=== PATIENT | female | born 1965 | race Caucasian/White ===

== ENCOUNTER 2025-01-10 18:36 | Inpatient (IN) | payer MEDICAID, OTHER ==
[~2025-01-10] VITALS: Ht 154.9 cm; Wt 81.8 kg
--- NOTE | 2025-01-10 18:59 | ED.PDOC ---
History of Present Illness HPI Comments 59 y.o female presents to the ED for a chief complaint of generalized weakness associated with dizziness, poor appetite and abdominal discomfort that started one month ago. Patient reports symptoms have progressively worsened, states she eats very little to keep her self alimented and is able to keep down the food. Patient mentions abdominal discomfort is not a pain, more so a tightness/fullness sensation with or without eating. Patient denies any nausea, vomiting, diarrhea, back pain, chest pain or SOB. She denies any medical history or allergies. Chief Complaint: General Weakness Time Seen by MD: 18:55 Reviewed Notes: Nurses Notes, Medications, Allergies Information Source: Patient Mode of Arrival: Ambulatory Severity: Moderate Timing: Months (1) Duration: Since onset Past Medical History PAST MEDICAL HISTORY: Denies Surgical History: Denies all surgeries EXHIBIT TECHNICIAN History: No Pertinent EXHIBIT TECHNICIAN History Family History Family History: Reviewed,noncontributory to illness Social History Smoker: Non-Smoker Alcohol: Denies ETOH Use Drugs: Denies Drug Use Lives In: Home Constitutional: reports: weakness; denies: chills, diaphoresis, fatigue, fever, malaise, sweats, others EENTM: denies: blurred vision, double vision, ear bleeding, ear discharge, ear drainage, ear pain, ear ringing, eye pain, eye redness, hearing loss, mouth pain, mouth swelling, nasal discharge, nose bleeding, nose congestion, nose pain, photophobia, tearing, throat pain, throat swelling, voice changes, others Respiratory: denies: cough, hemoptysis, orthopnea, SOB at rest, shortness of breath, SOB with excertion, stridor, wheezing, others Cardiovascular: denies: chest pain, dizzy spells, diaphoresis, Dyspnea on exertion, edema, irregular heart beat, left arm pain, lightheadedness, palpitations, PND, syncope, others Gastrointestinal: reports: abdominal pain; denies: abdomen distended, blood streaked bowels, constipated, diarrhea, dysphagia, difficulty swallowing, hematemesis, melena, nausea, poor appetite, poor fluid intake, rectal bleeding, rectal pain, vomiting, others Genitourinary: denies: abnormal vagina bleeding, burning, dyspareunia, dysuria, flank pain, frequency, hematuria, incontinence, pain, , vagina discharge, urgency, others Neurological: reports: dizziness; denies: fainting, headache, left sided numbness, left sided weakness, numbness, paresthesia, pre-existing deficit, right sided numbness, right sided weakness, seizure, speech problems, tingling, tremors, weakness, others Musculoskeletal: denies: back pain, gout, joint pain, joint swelling, muscle pain, muscle stiffness, neck pain, others Integumetry: denies: bruises, change in color, change in hair/nails, dryness, laceration, lesions, lumps, rash, wounds, others Allergic/Immunocompromised: denies: Difficulty Healing, Frequent Infections, Hives, Itching, others Hematologic/Lymphatic: denies: anemia, blood clots, easy bleeding, easy bruising, swollen glands, others Endocrine: denies: excessive hunger, excessive sweating, excessive thirst, excessive urination, flushing, intolerance to cold, intolerance to heat, unexplained weight gain, unexplained weight loss, others Psychiatric: denies: anxiety, bipolar disorder, depression, hopeless, panic disorder, schizophrenia, sleepless, suicidal, others All Other Systems: Reviewed and Negative Physical Exam General Appearance: Moderate Distress HEENT: Pale Conjuntivae (L), Pale Conjuntivae (R), Pharynx Normal, TMs Normal Neck: Full Range of Motion, Non-Tender, Normal, Normal Inspection Respiratory: Chest Non-Tender, Lungs Clear, No Accessory Muscle Use, No Respiratory Distress, Normal Breath Sounds Cardiovascular: No Edema, No JVD, No Murmur, No Gallop, Normal Peripheral Pulses, Regular Rate/Rhythm Breast Exam: Deferred Gastrointestinal: Distended, Hepatomegaly, No Pulsatile Mass, Soft Genitalia: Deferred Pelvic: Deferred Rectal: Deferred Extremities: No calf tenderness, Normal capillary refill, Pedal edema Musculoskeletal : Apperance: Normal Neurologic: Alert, global climate change researcher II-XII nml as Tested, No Motor Deficits, Normal Affect, Normal Mood, No Sensory Deficits Cerebellar Function: Normal Reflexes: Normal Skin: Dry, Normal Color, Warm Lymphatic: No Adenopathy Was a procedure done? Was a procedure done?: No Differential Dx Considerations may include: Viral Syndrome, Vertigo, Anxiety, Thyroid disease, dehydration X-Ray, Labs, Meds, VS Vital Signs Date Time Temp Pulse Resp B/P (MAP) Pulse Ox O2 Delivery O2 Flow Rate FiO2 01/10/25 18:51 98.0 95 20 119/79 (92) 98 98.0 Lab Test 01/10/25 19:09 Range/Units White Blood Count 7.0 4.4-10.8 10^3/uL Red Blood Count 4.07 4.0-5.20 10^6/uL Hemoglobin 12.1 L 12.2-16.2 g/dL Hematocrit 36.0 36.0-46.0 % Mean Corpuscular Volume 88.4 80.0-100.0 fL Mean Corpuscular Hemoglobin 29.6 28.0-32.0 pg Mean Corpuscular Hemoglobin Concent 33.5 32.0-36.0 g/dL Red Cell Distribution Width 21.8 H 11.8-14.3 % Platelet Count 197 140-450 10^3/uL Mean Platelet Volume 7.4 6.9-10.8 fL Neutrophils (%) (Auto) 73.5 37.0-80.0 % Lymphocytes (%) (Auto) 16.0 10.0-50.0 % Monocytes (%) (Auto) 8.0 0.0-12.0 % Eosinophils (%) (Auto) 1.4 0.0-7.0 % Basophils (%) (Auto) 1.1 0.0-2.0 % Neutrophils # (Auto) 5.2 1.6-8.6 10 ^3/uL Lymphocytes # (Auto) 1.1 0.4-5.4 10 ^3/uL Monocytes # (Auto) 0.6 0-1.3 10 ^3/uL Eosinophils # (Auto) 0.1 0-0.8 10 ^3/uL Basophils # (Auto) 0.1 0-0.2 10 ^3/uL Nucleated Red Blood Cells 0.1 % Sodium Level 135 L 136-145 mmol/L Potassium Level 4.4 3.5-5.1 mmol/L Chloride Level 104 98-107 mmol/L Carbon Dioxide Level 22 20-31 mmol/L Anion Gap 9 5-15 Blood Urea Nitrogen 11 9-23 mg/dL Creatinine 0.95 0.550-1.02 mg/dL Glomerular Filtration Rate Calc 69 >90 mL/min BUN/Creatinine Ratio 11.6 10.0-20.0 Serum Glucose 101 74-106 mg/dL Calcium Level 9.2 8.7-10.4 mg/dL Total Bilirubin 1.6 H 0.2-1.0 mg/dL Aspartate Amino Transferase (AST) 171 H <34 U/L Alanine Aminotransferase (ALT) 47 H 7-40 U/L Alkaline Phosphatase 334 H 46-116 U/L Total Protein 9.3 H 5.7-8.2 g/dL Albumin 3.0 L 3.2-4.8 g/dL CAT scan of the abdomen and pelvis shows: IMPRESSION: 1. Moderate ascites around the liver and scattered throughout the abdomen and pelvis. 2. No findings of bowel obstruction. 3. Mild distention of the gallbladder no calcified gallstones seen. 4. No nephrolithiasis or hydronephrosis. Liver enzymes are all elevated with a total bilirubin of 1.6 At this time the patient's CBC is within normal limits The rest of the chemistry panel is within normal limits The patient is being admitted to the hospitalist Images Reviewed?: Images reviewed and evaluated by me Time of 1ST Reevaluation: 18:58 Reevaluation 1ST: Unchanged Patient Education/Counseling: Diagnosis, Treatment, Prognosis Family Education/Counseling: No Family Present Departure 1 Departure Time of Disposition: 20:33 Impression: Primary Impression: Intractable abdominal pain Additional Impressions: Liver cirrhosis Qualified Codes: K74.60 - Unspecified cirrhosis of liver; R18.8 - Other ascites Hyperbilirubinemia Disposition: ADMITTED INPATIENT Admit to: Med Surg Condition: Fair Critical Care Note Critical Care Time?: No Stability Stability form required: Yes Unstable for transfer: ED Physician Assesment (Clinical assesment) I personally scribed for NORRIS ROWLAND MD ([email or web address]) on 01/10/25 at 18:58. Electronically submitted by Lana Correa ([facility]). NORRIS ROWLAND MD Jan 10, 2025 18:58
[2025-01-10 19:19] LABS: Basophils # (auto) 0.1 10 ^3/uL (0-0.2); Basophils % (auto) 1.1 % (0.0-2.0); Eosinophils # (auto) 0.1 10 ^3/uL (0-0.8); Eosinophils % (auto) 1.4 % (0.0-7.0); Hemoglobin 12.1 g/dL (12.2-16.2); Lymphocytes # (auto) 1.1 10 ^3/uL (0.4-5.4); Mean Corpuscular Hemoglobin 29.6 pg (28.0-32.0); Mean Corpuscular Hgb Conc. 33.5 g/dL (32.0-36.0); Mean Corpuscular Volume 88.4 fL (80.0-100.0); Monocytes # (auto) 0.6 10 ^3/uL (0-1.3); Neutrophils # (auto) 5.2 10 ^3/uL (1.6-8.6); Neutrophils % (auto) 73.5 % (37.0-80.0); Nucleated Red Blood Cells % 0.1 %; Platelet Count (auto) 197 10^3/uL (140-450); Red Blood Cells 4.07 10^6/uL (4.0-5.20)
[2025-01-10 19:33] LABS: Red Cell Distribution Width 21.8 % (11.8-14.3)
[2025-01-10 19:34] LABS: Anion Gap 9 (5-15); BUN/Creatinine Ratio 11.6 (10.0-20.0); Blood Urea Nitrogen 11 mg/dL (9-23); Calcium 9.2 mg/dL (8.7-10.4); Carbon Dioxide 22 mmol/L (20-31); Chloride 104 mmol/L (98-107); Glucose 101 mg/dL (74-106); Potassium 4.4 mmol/L (3.5-5.1)
[2025-01-10 19:39] LABS: Alanine Aminotransferase 47 U/L (7-40); Alkaline Phosphatase 334 U/L (46-116); Aspartate Aminotransferase 171 U/L (<34); Bilirubin, Total 1.6 mg/dL (0.2-1.0); Sodium 135 mmol/L (136-145); Total Protein 9.3 g/dL (5.7-8.2)
--- NOTE | 2025-01-10 20:24 | DVH ---
Exam: CT CT AB PEL WO CON-NO ORAL OR IV History: pain Comparison Study: None TECHNIQUE: Multidetector CT of the abdomen was performed from lung bases to pubic symphysis. Imaging was performed without IV contrast. Axial, coronal and sagittal multiplanar reformats were obtained fr om the axial data set by the technologist. Radiation Dose Information: CT Dose: CTDI volume is 10.78 mGy. Dose-length product is 581.58 mGy*cm FINDINGS: Evaluation of solid organs is limited due to lack of intravenous contrast use. Findings: Lung Bases: No acute or significant lung base finding. Normal heart size. No pleural or pericardial effusion. Liver: The liver is normal in size. No focal lesions. Hepatomegaly. Hepatomegaly measuring 24 cm. Gallbladder and Biliary Tree: Unremarkable Spleen: Spleen measures 13.3 cm. Pancreas: The pancreas is grossly normal in appearance. Adrenal Glands: Unremarkable Kidneys: Kidneys are grossly normal without calculi or hydronephrosis. Bladder: Grossly unremarkable for degree of distention. Bowel: The stomach is grossly normal in appearance. Small bowel and colon are normal in caliber and d istribution. The appendix is not visualized; however, no secondary findings of acute appendicitis id entified. Ascites: Scattered ascites is noted around the liver and scattered throughout the abdomen and pelvis. Lymphadenopathy: No mesenteric, retroperitoneal or periportal lymphadenopathy. Abdominal Wall and Mesentery: Unremarkable. Vasculature: The visualized abdominal aorta is normal in size and caliber. Evaluation of abdominal a nd pelvic vessels is limited due to lack of intravenous contrast. Pelvic Organs: Unremarkable Musculoskeletal: No aggressive focal bony lesions, acute fractures or dislocation. Soft tissues: Unremarkable IMPRESSION: 1. Moderate ascites around the liver and scattered throughout the abdomen and pelvis. 2. No findings of bowel obstruction. 3. Mild distention of the gallbladder no calcified gallstones seen. 4. No nephrolithiasis or hydronephrosis. Radiation optimization: All CT scans at this facility use at least one of these dose optimization patrick hniques: automated exposure control mA and/or kV adjustment per patient size (includes targeted exam s where dose is matched to clinical indication) or iterative reconstruction.
[2025-01-10] MEDS ORDERED: NITROGLYCERIN 0.4 MG SL TAB SL PRN (23:45)
[2025-01-10] MEDS ORDERED: MORPHINE SULFATE INJ 2 MG/ml SYRG IV PRN ×2 (23:45)
[2025-01-11 00:53] LABS: Basophils # (auto) 0.1 10 ^3/uL (0-0.2); Basophils % (auto) 1.3 % (0.0-2.0); Eosinophils # (auto) 0.1 10 ^3/uL (0-0.8); Eosinophils % (auto) 1.1 % (0.0-7.0); Hematocrit 34.2 % (36.0-46.0); Hemoglobin 11.5 g/dL (12.2-16.2); Lymphocytes # (auto) 1.2 10 ^3/uL (0.4-5.4); Lymphocytes % (auto) 17.3 % (10.0-50.0); Mean Corpuscular Hemoglobin 29.7 pg (28.0-32.0); Mean Corpuscular Hgb Conc. 33.8 g/dL (32.0-36.0); Mean Corpuscular Volume 88.1 fL (80.0-100.0); Monocytes # (auto) 0.7 10 ^3/uL (0-1.3); Monocytes % (auto) 9.4 % (0.0-12.0); Neutrophils % (auto) 70.9 % (37.0-80.0); Nucleated Red Blood Cells % 0.3 %; Platelet Count (auto) 188 10^3/uL (140-450); Red Blood Cells 3.88 10^6/uL (4.0-5.20); Red Cell Distribution Width 20.9 % (11.8-14.3)
[2025-01-11 01:09] LABS: % Iron Saturation 24.5 % (15-50)
[2025-01-11 01:10] LABS: Anion Gap 10 (5-15); BUN/Creatinine Ratio 12.6 (10.0-20.0); Blood Urea Nitrogen 11 mg/dL (9-23); Carbon Dioxide 22 mmol/L (20-31); Chloride 102 mmol/L (98-107); Lipase 48 U/L (12-53)
[2025-01-11 01:11] LABS: Alanine Aminotransferase 44 U/L (7-40); Albumin 2.9 g/dL (3.2-4.8); Alkaline Phosphatase 328 U/L (46-116); Aspartate Aminotransferase 161 U/L (<34); Bilirubin, Total 1.6 mg/dL (0.2-1.0); Calcium 8.4 mg/dL (8.7-10.4); Glucose 109 mg/dL (74-106); Sodium 134 mmol/L (136-145); Total Protein 8.9 g/dL (5.7-8.2)
[2025-01-11 01:12] LABS: INR 1.32 (0.9-1.15); Prothrombin Time 13.6 sec (9.3-11.8)
--- NOTE | 2025-01-11 01:29 | DVHHPRES ---
History of Present Illness Resident Creating Document: PAWAN BOND RESIDENT History of Present Illness Ms. Rao Gilbert, 59-year-old female without any known previous medical history except chronic anemia presents to the emergency department from home with a one-month history of progressively worsening generalized weakness, dizziness, poor appetite, and a sensation of abdominal tightness or fullness, which she describes as discomfort rather than pain. She reports eating very little but is able to tolerate and retain food. The abdominal sensation occurs with or without eating. She denies associated symptoms such as nausea, vomiting, diarrhea, back pain, chest pain, or shortness of breath. She has no known medical history or allergies. She arrived ambulatory, and the severity of her symptoms is described as moderate. Limited history, poor historian, no previous hospitalization noted. Heme/Onc: Anemia NOS Past Medical History not known Past Surgical History: None Family History: None, Other (noncontributary ) Smoke: No ALCOHOL: none Drugs: None Lives: with Family (lives at home. ) Domestic Violence: Neg Review of Systems Constitutional: Yes: Weakness; No: Fever, Chills, Sweats, Malaise, Other Eyes: No: Pain, Vision change, Conjunctivae inflammation, Eyelid inflammation, Other, Redness ENT: No: Ear pain, Ear discharge, Nose pain, Nose discharge, Nose congestion, Mouth pain, Mouth swelling, Throat pain, Throat swelling, Other Respiratory: No: Cough, Dry, Shortness of breath, SOB with excertion, Wheezing, Hemoptysis, Pleuritic Pain, Sputum, Wheezing, Other Cardiovascular: No: Chest Pain, Palpitations, Orthopnea, Paroxysmal Noc. Dyspnea, Edema, Lt Headedness, Other Gastrointestinal: Nausea, Abdominal Pain; No: Vomiting, Diarrhea, Constipation, Melena, Hematochezia, Other Genitourinary: No Dysuria, No Frequency, No Incontinence, No Hematuria, No Retention, No Other Musculoskeletal: No: other, neck pain, shoulder pain, arm pain, back pain, hand pain, leg pain, foot pain Skin: No: Rash, Lesions, Jaundice, Bruising, Other Neurological: Weakness; No: Numbness, Incoordination, Change in speech, Confusion, Seizures, Other Allergies: Coded Allergies: Penicillins (Verified Allergy, Unknown, 01/11/25) Medications Current Medications Medications Dose Ordered Sig/Ivis Route Start Time Stop Time Status Last Admin Dose Admin Sodium Chloride 1,000 ml @ 60 mls/hr [id number] IV 01/10/25 23:45 Morphine Sulfate 2 mg Q4HPRN PRN IV 01/10/25 23:45 Nitroglycerin 0.4 mg Q5MINP PRN SL 01/10/25 23:45 Morphine Sulfate 2 mg Q30M PRN IV 01/10/25 23:45 Ceftriaxone Sodium 50 ml @ 100 mls/hr DAILY@09 IV 01/11/25 09:00 Metronidazole 100 ml @ 100 mls/hr Q8HR IV 01/11/25 06:00 Pantoprazole Sodium 40 mg DAILY IV 01/11/25 10:00 Exam Vital Signs Vital Signs Date Time Temp Pulse Resp B/P (MAP) Pulse Ox O2 Delivery O2 Flow Rate FiO2 01/10/25 18:51 98.0 95 20 119/79 (92) 98 98.0 General Appearance: Alert, Oriented X3, Cooperative, No acute distress HEENT: Atraumatic, PERRLA, EOMI, Other (dry mucous membrane , pallor ) Respiratory: Clear to auscultation, Normal air movement, Other (in RA ) Cardiovascular: Regular rate, Normal S1, Normal S2, No murmurs Abdominal: Normal bowel sounds, Soft, No tenderness, No masses, Other (mild distention, full flanks. no tenderness. ) Extremities: No clubbing, No cyanosis, No edema, Normal pulses, No tenderness/swelling Skin: No rashes, No breakdown, No significant lesion Neuro: Normal gait, Normal speech, Strength at 5/5 X4 ext, Normal tone, Sensation intact, Cranial nerves 3-12 NL, Reflexes 2+, Other (No focal neurological deficits noted) Psych/Mental Status: Mental status NL, Mood NL Labs/Xrays Labs Test 01/11/25 00:29 Range/Units White Blood Count 7.0 4.4-10.8 10^3/uL Red Blood Count 3.88 L 4.0-5.20 10^6/uL Hemoglobin 11.5 L 12.2-16.2 g/dL Hematocrit 34.2 L 36.0-46.0 % Mean Corpuscular Volume 88.1 80.0-100.0 fL Mean Corpuscular Hemoglobin 29.7 28.0-32.0 pg Mean Corpuscular Hemoglobin Concent 33.8 32.0-36.0 g/dL Red Cell Distribution Width 20.9 H 11.8-14.3 % Platelet Count 188 140-450 10^3/uL Mean Platelet Volume 7.5 6.9-10.8 fL Neutrophils (%) (Auto) 70.9 37.0-80.0 % Lymphocytes (%) (Auto) 17.3 10.0-50.0 % Monocytes (%) (Auto) 9.4 0.0-12.0 % Eosinophils (%) (Auto) 1.1 0.0-7.0 % Basophils (%) (Auto) 1.3 0.0-2.0 % Neutrophils # (Auto) 5.0 1.6-8.6 10 ^3/uL Lymphocytes # (Auto) 1.2 0.4-5.4 10 ^3/uL Monocytes # (Auto) 0.7 0-1.3 10 ^3/uL Eosinophils # (Auto) 0.1 0-0.8 10 ^3/uL Basophils # (Auto) 0.1 0-0.2 10 ^3/uL Nucleated Red Blood Cells 0.3 % Sodium Level 134 L 136-145 mmol/L Potassium Level 4.0 3.5-5.1 mmol/L Chloride Level 102 98-107 mmol/L Carbon Dioxide Level 22 20-31 mmol/L Anion Gap 10 5-15 Blood Urea Nitrogen 11 9-23 mg/dL Creatinine 0.87 0.550-1.02 mg/dL Glomerular Filtration Rate Calc 76 >90 mL/min BUN/Creatinine Ratio 12.6 10.0-20.0 Serum Glucose 109 H 74-106 mg/dL Lactic Acid Level 1.9 0.4-2.0 mmol/L Calcium Level 8.4 L 8.7-10.4 mg/dL Iron Level 63 50-170 ug/dL Total Iron Binding Capacity 257 250-425 ug/dL Percent Iron Saturation 24.5 15-50 % Ferritin 321.0 H 10-291 ng/mL Total Bilirubin 1.6 H 0.2-1.0 mg/dL Aspartate Amino Transferase (AST) 161 H <34 U/L Alanine Aminotransferase (ALT) 44 H 7-40 U/L Alkaline Phosphatase 328 H 46-116 U/L Ammonia 22 11-32 umol/L Total Protein 8.9 H 5.7-8.2 g/dL Albumin 2.9 L 3.2-4.8 g/dL Lipase 48 12-53 U/L Assessment/Plan Assessment/Plan # Progressive dysphagia, poor appetite, unintentional weight loss, persistent and inability to tolerate food: We will do GI consult for a possible EGD and fur ther workup. Patient has not previously follow up with GI. The patient reports progressively worsening symptoms over the past month, including poor appetite with minimal food intake that she can tolerate, and a non-painful abdominal tightness or fullness occurring with or without eating, while denying nausea, vomiting, diarrhea, back pain, chest pain, shortness of breath, medical history, or allergies. # Generalized weakness associated with dizziness: check for orthostatic vitals, fall precautions, check for secondary causes and PT eval pending. # Dizziness: Intermittent dizziness without loss of consciousness, likely due to dehydration, other secondary causes, orthostatic hypotension, it to rule out, orthostatic vitals, IV fluid, review symptoms. # Chronic abdominal pain workup in progress, CT abdomen unremarkable, possible paracentesis and further testing, presumptive diagnosis of SBP, lipase, ammonia, UDS to check. # spontaneous bacterial peritonitis: Likely with g negatives and anaerobes We will empirically cover, blood culture to follow # normocytic anemia, acute versus chronic: hemoglobin 12.1, RDW 21.8, check for ferritin +iron panel , no known active blood loss.avoid NSAIDs, aspirin, anticoagulation, Lovenox, high-risk of bleeding, SCDs only with GI prophylaxis. Transfusion threshold of hemoglobin 7. # Hyperbilirubinemia: Likely due to underlying liver disease/ hepatobiliary pathology, workup in progress, check for differentials # likely hepatitis, check the comprehensive hepatitis panel, UDS, alcohol, workup in progress # History of chronic anemia: Denies any active bleeding, further workup needed for GI malignancy/ GI occult blood loss, GI consulted. For close follow up. # history of liver cirrhosis check INR PT and ammonia to check # likely we will need paracentesis for diagnostic/ therapeutic purpose. # hypoalbuminemia likely due to above # Transaminitis: trend CMP, Suspicious related to 2 to 1 pattern, Hepatomegaly measuring 24 cm. RUQ liver ultrasound , hepatitis panel pending. # Poor medical adherence, does not have a close follow up, outpatient patient needs further close follow up and preventative workup. PCP: NA, will consider [facility] for PCP follow up at discharge. Specialist Relevant To Admission: GI. Consulted for further workup for dysphagia. Case discussed with Dr. Ricci. Code Status: Full Code. Discussion needed total 37 minutes bedside with goals of care discussion and plan of care. Patient is agreeable to be admitted in hospital in the [facility] surge. Plan discussed with: Patient My Orders Orders - PAWAN BOND RESIDENT Procedure Category Date Status Time Admit ADMIT 01/10/25 Transmitted 23:43 Allergies PATRICK 01/10/25 In Process 23:43 Code Status CODE 01/10/25 Transmitted 23:43 Sodium Chloride 0.9% PHA 01/10/25 In Process 23:45 Npo (Nothing By DIET 01/11/25 Transmitted Mouth) Diet Breakfast Pt Request For Service PT 01/10/25 Logged 23:43 * Swallow Request ST 01/10/25 Transmitted 23:43 Echo 2d Mode Cardiac US 01/10/25 Logged DOP 23:43 Condition: Serious PATRICK 01/10/25 In Process 23:43 Morphine Sulfate PHA 01/10/25 In Process Injection 23:45 Nitroglycerin PHA 01/10/25 In Process Sublingual (Ntrostat 23:45 Morphine Sulfate PHA 01/10/25 In Process Injection 23:45 Oxygen By Nasal RT 01/10/25 Transmitted Cannula 23:43 Stat Ekg For Chest PATRICK 01/10/25 In Process Pain 23:43 Notify Md Of Changes PATRICK 01/10/25 In Process From Base 23:43 Second Language Tutor For PATRICK 01/10/25 In Process 24 Hours 23:43 Emergency Dysrhythmia PATRICK 01/10/25 In Process Protocol 23:43 Rhythm Strips Once PATRICK 01/10/25 In Process Every Shift 23:43 Lipase LAB 01/11/25 In Process 00:02 Drug Screen LAB 01/11/25 Logged 00:02 Blood Alcohol LAB 01/11/25 In Process 00:02 Blood Culture FRANCISCA 01/11/25 In Process 00:02 Ceftriaxone 1gm/50ml PHA 01/11/25 In Process D5w (Rocephin) 09:00 Metronidazole PHA 01/11/25 In Process 500mg/100ml (Flagyl 06:00 Comprehensive LAB 01/11/25 In Process Hepatitis Panel 00:02 LIVER US 01/11/25 Taken 00:02 Prothrombin Time W/ LAB 01/11/25 In Process INR 00:02 Thyroid Stimulating LAB 01/11/25 In Process Hormone 00:07 Comprehensive LAB 01/11/25 In Process Metabolic Panel 00:02 Pantoprazole PHA 01/11/25 In Process (Protonix) 01:15 Pantoprazole PHA 01/11/25 In Process (Protonix) 10:00 Stool Occult Blood LAB 01/11/25 Logged 01:07 Date of Service: Jan 11, 2025 Billing Provider: STEFANIE RICCI MD Common Visit Codes: 90197-YVPBGNP INP/OBS CARE (HIGH) Secondary Visit Codes: 26547-LSFUFATF CARE PLAN 30 MINUTES PAWAN BOND RESIDENT Jan 11, 2025 01:29
--- NOTE | 2025-01-11 01:57 | DVH ---
INDICATION: Rule out Hepatobiliary pathology TECHNIQUE: Multiple real-time sonographic images were obtained of the right upper quadrant. COMPARISON: None FINDINGS: The liver demonstrates diffusely heterogeneous echotexture and is lobulated in its morpholo gy, suggestive of cirrhotic change. Ill-defined heterogeneous left hepatic lobe masslike structure me asures 11.9 x 10.6 x 9.0 cm. The liver measures 20.4 cm. Normal hepatopetal portal flow identified. No evidence of pleural effusion. Moderate abdominal ascites. There is no intrahepatic or extrahepatic ductal dilatation. The common duct is dilated, measuring 1.7 cm. Mobile sludge noted within the gallbladder. The gallbladder wall is mildly thickened, measuring 0.4 c m. Negative sonographic Fagan's sign. The right kidney measures 9.3 cm. The right kidney is normal in contour, size, and shape. The echogen icity is normal. There is no hydronephrosis. The pancreas is not well visualized due to overlying bowel gas. IMPRESSION: 1. Hepatomegaly and cirrhotic hepatic morphology. 2. Ill-defined left hepatic lobe masslike structure poorly characterized on the current exam. 3. Gallbladder sludge and borderline wall thickening. Negative sonographic fagan's sign. 4. Dilated common bile duct.
[2025-01-11] MEDS: PANTOPRAZOLE 40 MG/10 ML VIAL INJ IV ONE (02:06)
[2025-01-11] MEDS: SODIUM CHLORIDE 0.9% 1,000 ML IV SCH (02:12)
[2025-01-11 02:39] VITALS: BP 97/64; PULSE 85; RESP 15; O2SAT 95
[2025-01-11 03:45] LABS: Blood Alcohol < 3.0 mg/dL (<10)
[2025-01-11 04:45] VITALS: BP 98/59; PULSE 85; RESP 15; TEMP 98.3; O2SAT 97
[2025-01-11] MEDS: metroNIDAZOLE 500MG/100ML 100 ML IV SCH (05:08)
[2025-01-11] MEDS ORDERED: ENOXAPARIN SOD 40 MG/0.4 ML SYRINGE SC SCH (10:00)
[2025-01-11] MEDS: cefTRIAXone 1GM/50ML D5W 50 ML IV SCH (10:37)
[2025-01-11] MEDS: PANTOPRAZOLE 40 MG/10 ML VIAL INJ IV SCH (10:38)
[2025-01-11 10:46] VITALS: BP 108/67; PULSE 80; RESP 18; TEMP 98.6; O2SAT 96
[2025-01-11 10:50] LABS: Free T4 (Free Thyroxine) 1.2 ng/dL (0.89-1.76)
[2025-01-11 10:51] LABS: Free T3 2.56 pg/mL (2.3-4.2)
[2025-01-11 10:52] LABS: Hepatitis B Core Total AB Negative (Negative)
[2025-01-11 11:20] LABS: Hepatitis A Total Antibody Positive (Negative); Hepatitis B Surface Antibody Negative (Negative); Hepatitis B Surface Antigen Negative (Negative); Hepatitis C Antibody Negative (Negative)
[2025-01-11] MEDS ORDERED: MORPHINE SULFATE INJ 2 MG/ml SYRG IV PRN (11:45)
[2025-01-11] MEDS ORDERED: IRON SUCROSE COMPLEX 110 ML IV SCH (12:00)
--- NOTE | 2025-01-11 13:44 | DVHINCON2 ---
GI Consult Consult Note GI consult note Date of Consultation: 01/11/2025 Chief Complaint: Weight loss, abdominal pain, dysphagia and ammonia Referring Physician: Dr. Estrada H&P: 59-year-old female with history of chronic anemia, presents to ER with complains of progressive worsening generalized weakness for this one month, having poor appetite, with weight loss of 30 lb in the last three months. Patient complains of occasional difficulty swallowing. Patient also is complaining of abdominal fullness feels bloated. No nausea or vomiting. No history of hematemesis No melena or red blood in stool. Patient denies alcohol use in the past. Denies history of hepatitis No EGD or colonoscopy in past Past Medical History: Anemia Past Surgical History: Denies Social History: NO smoking, drinking ETOH and use of illegal drugs. Family History: Noncontributory Review of Systems: Constitutional: no fever, chill, weight loss HEENT: no eye pain, no hearing loss, no oral lesion, no scleral icterus Heart: no chest pain, no chest pressure Lung: no cough, no dyspnea with exertion Abdomen: see HPI Physical exam: General: NAD, AAOX3 Chest: lung camacho clear to auscultation Heart: RRR, no murmur Abdomen: Wqul-ye-ssnhbbat-distended, no tenderness to palpation, +BS Labs: Labs Test 01/11/25 00:29 Range/Units White Blood Count 7.0 4.4-10.8 10^3/uL Red Blood Count 3.88 L 4.0-5.20 10^6/uL Hemoglobin 11.5 L 12.2-16.2 g/dL Hematocrit 34.2 L 36.0-46.0 % Mean Corpuscular Volume 88.1 80.0-100.0 fL Mean Corpuscular Hemoglobin 29.7 28.0-32.0 pg Mean Corpuscular Hemoglobin Concent 33.8 32.0-36.0 g/dL Red Cell Distribution Width 20.9 H 11.8-14.3 % Platelet Count 188 140-450 10^3/uL Mean Platelet Volume 7.5 6.9-10.8 fL Neutrophils (%) (Auto) 70.9 37.0-80.0 % Lymphocytes (%) (Auto) 17.3 10.0-50.0 % Monocytes (%) (Auto) 9.4 0.0-12.0 % Eosinophils (%) (Auto) 1.1 0.0-7.0 % Basophils (%) (Auto) 1.3 0.0-2.0 % Neutrophils # (Auto) 5.0 1.6-8.6 10 ^3/uL Lymphocytes # (Auto) 1.2 0.4-5.4 10 ^3/uL Monocytes # (Auto) 0.7 0-1.3 10 ^3/uL Eosinophils # (Auto) 0.1 0-0.8 10 ^3/uL Basophils # (Auto) 0.1 0-0.2 10 ^3/uL Nucleated Red Blood Cells 0.3 % Prothrombin Time 13.6 H 9.3-11.8 sec Prothrombin Time INR 1.32 H 0.9-1.15 Sodium Level 134 L 136-145 mmol/L Potassium Level 4.0 3.5-5.1 mmol/L Chloride Level 102 98-107 mmol/L Carbon Dioxide Level 22 20-31 mmol/L Anion Gap 10 5-15 Blood Urea Nitrogen 11 9-23 mg/dL Creatinine 0.87 0.550-1.02 mg/dL Glomerular Filtration Rate Calc 76 >90 mL/min BUN/Creatinine Ratio 12.6 10.0-20.0 Serum Glucose 109 H 74-106 mg/dL Lactic Acid Level 1.9 0.4-2.0 mmol/L Calcium Level 8.4 L 8.7-10.4 mg/dL Iron Level 63 50-170 ug/dL Total Iron Binding Capacity 257 250-425 ug/dL Percent Iron Saturation 24.5 15-50 % Ferritin 321.0 H 10-291 ng/mL Total Bilirubin 1.6 H 0.2-1.0 mg/dL Aspartate Amino Transferase (AST) 161 H <34 U/L Alanine Aminotransferase (ALT) 44 H 7-40 U/L Alkaline Phosphatase 328 H 46-116 U/L Ammonia 22 11-32 umol/L Total Protein 8.9 H 5.7-8.2 g/dL Albumin 2.9 L 3.2-4.8 g/dL Lipase 48 12-53 U/L Thyroid Stimulating Hormone (TSH) 6.27 H 0.55-4.78 uIU/mL Free Thyroxine (T4) Calculated 1.20 0.89-1.76 ng/dL Free Triiodothyronine (T3) pg/mL 2.56 2.3-4.2 pg/mL Plasma/Serum Blood Alcohol < 3.0 <10 mg/dL Hepatitis A Antibody Total Positive H Negative Hepatitis B Surface Antigen Negative Negative Hepatitis B Surface Antibody Negative Negative Hepatitis B Core Total Antibody Negative Negative Hepatitis C Antibody Negative Negative Imaging: CT Abdomen pelvis IMPRESSION: 1. Moderate ascites around the liver and scattered throughout the abdomen and pelvis. 2. No findings of bowel obstruction. 3. Mild distention of the gallbladder no calcified gallstones seen. 4. No nephrolithiasis or hydronephrosis. Abdominal ultrasound IMPRESSION: 1. Hepatomegaly and cirrhotic hepatic morphology. 2. Ill-defined left hepatic lobe masslike structure poorly characterized on the current exam. 3. Gallbladder sludge and borderline wall thickening. Negative sonographic river's sign. 4. Dilated common bile duct. Assessment: Hepatomegaly Ascites Dysphagia Dilated common bile duct Abnormal abdominal imaging Plan: Discussed with Dr. Stern Mrcp results pending Full liquid diet today NPO after midnight, patient requires any GI procedures. After reviewing MRCP results Discussed plan with patient and RN Date of Service: Jan 11, 2025 Billing Provider: GISELLE CORNEJO Common Visit Codes: CONSULT ONLY Consultation Codes: [id number] CONSULT <60MIN GISELLE CORNEJO Jan 11, 2025 13:44
--- NOTE | 2025-01-11 14:08 | DVH ---
PROCEDURE: MRI MRCP MRI Indication: Dilated CBD COMPARISON: 01/10/2025 01/11/2025 TECHNIQUE: Multiplanar multisequence images of the abdomen are obtianed per MRCP protocol. FINDINGS: Examination degraded by motion. Adrenal glands unremarkable. The spleen is enlarged measuring 17 cm AP. Gallbladder partially distended. No T2 hyperintense lesions in the pancreas. The liver capsule is nodular morphology. There is a large T2 bright mass within the right hepatic lo be/ dome measuring 12 x 13 cm.T2 bright lesion within the posterior right hepatic lobe measuring 8.0 x 6.0 cm. There is another mass /conglomerate lymphadenopathy within the posterior right hepatic lobe / caudate lobe which compresses upon the common bile duct measuring at least 7.0 x 6.1 cm and extends into the region of the anibal hepatis, with individual masses measuring 4.9 cm, 3.6 cm. These lesions / masses demonstrate diffusion restriction signal. There is likely thrombus within the left portal ve in. The common bile duct is compressed by the caudate mass/anibal hepatis lymphadenopathy. The proximal CB D measures 4 mm in diameter. Mid CBD efface. Distal CBD measures 3 mm in diameter. Pancreatic duct appears grossly nondilated. The kidneys demonstrate no hydronephrosis. Mesenteric edema. Small amount of ascites fluid. Stomach is partially distended. The imaged small bowel loops demonstrate bowel wall edema. Generali zed mesenteric edema. IMPRESSION: Extensive hepatic infiltrative masses/ lesions consistent with malignancy/ metastatic disease. This i ncludes right hepatic lobe lesion measuring 13 x 12 cm, posterior right hepatic lobe lesion measuring 8 x 6 cm. There is also poorly defined /conglomerate lymphadenopathy/ mass in the region of the caud ate lobe/anibal hepatis measuring 7 x 6.1 cm with individual lesions measuring 4.9 cm, 3.6 cm. These lesions all demonstrate diffusion restriction and are compatible with malignancy / metastatic disease . Recommend multiphasic MRI abdomen with and without contrast and oncology, GI consultation Probable thrombus within the left portal vein which can be further evaluated on multiphasic MRI abdom en. The common bile duct is overall poorly characterized but appears to be compressed from the caudate / anibal hepatis mass/lymphadenopathy. Gallbladder partially distended. Perihepatic ascites fluid. Mesenteric edema. Massive splenomegaly..
--- NOTE | 2025-01-11 16:41 | DVHPNRES ---
Progress Note Date Seen: Jan 11, 2025 Resident Creating Document: WILMER MOROCHO MARIA C Has the PT tested + for MRSA If YES, has PT been informed?: No Medical Necessity Reason Pt with a Central, PICC or Fol: No Subjective Review of Systems Ms. Rao Gilbert, 59-year-old female without any known previous medical history except chronic anemia presents to the emergency department from home with a one-month history of progressively worsening generalized weakness, dizziness, poor appetite, and a sensation of abdominal tightness or fullness, which she describes as discomfort rather than pain. She reports eating very little but is able to tolerate and retain food. The abdominal sensation occurs with or without eating. She denies associated symptoms such as nausea, vomiting, diarrhea, back pain, chest pain, or shortness of breath. She has no known medical history or allergies. She arrived ambulatory, and the severity of her symptoms is described as moderate. Limited history, poor historian, no previous hospitalization noted. Patient seen and examined at bedside. Patient is complaining of abdominal discomfort. Patient reports: No new complaints, Feels better Changes from previous H/P or p: Changes Objective vital signs Vital Sign Date Time Temp Pulse Resp B/P (MAP) Pulse Ox O2 Delivery O2 Flow Rate FiO2 01/11/25 10:46 98.6 80 18 108/67 (81) 96 98.6 01/11/25 08:00 Room Air* 0 21 Total Intake and Output 01/10/25 01/10/25 01/11/25 15:00 23:00 07:00 Intake Total 100 ml Balance 100 ml medications Current Medications Medications Dose Ordered Sig/Ivis Route Start Time Stop Time Status Last Admin Dose Admin Ceftriaxone Sodium 50 ml @ 100 mls/hr DAILY@09 IV 01/11/25 09:00 01/11/25 10:37 100 MLS/HR Metronidazole 100 ml @ 100 mls/hr Q8HR IV 01/11/25 06:00 01/11/25 14:34 100 MLS/HR Pantoprazole Sodium 40 mg DAILY IV 01/11/25 10:00 01/11/25 10:38 40 MG Morphine Sulfate 1 mg Q6HP PRN IV 01/11/25 11:45 Examination General Appearance: Alert, Oriented X3, Cooperative, No acute distress HEENT: Atraumatic, PERRLA, EOMI, Mucous membrane moist/pink Respiratory: Clear to auscultation, Normal air movement Cardiovascular: Regular rate, Normal S1, Normal S2, No murmurs, no chest wall tenderness Abdominal: Distended abdomen with positive shifting dullness Extremities: No clubbing, No cyanosis, No edema, Normal pulses, No tenderness/swelling Skin: No rashes, No breakdown, No significant lesion Neuro: Normal gait, Normal speech, Strength at 5/5 X4 ext, Normal tone, Sensation intact, Cranial nerves 3-12 NL, Reflexes 2+ Psych/Mental Status: Mental status NL, Mood NL laboratory and microbiology Laboratory Tests 01/11/25 00:29 Test 01/11/25 00:29 Range/Units Serum Glucose 109 H 74-106 mg/dL Microbiology Date/Time Source Procedure Growth Status 01/11/25 00:29 Blood Blood Culture - Preliminary Resulted Labs and/or images reviewed: Labs reviewed by me, Image(s) reviewed by me Problem List/Assessment/Plan Problem List/Assessment/Plan Acute on chronic liver failure leading to ascites Abdominal pain likely due to ascites Ascites, likely due to liver failure Transaminitis Moderate protein malnutrition ? Cholelithiasis ? Choledocholithiasis ? Spontaneous bacterial pneumonitis Hyperbilirubinemia CT scan shows moderate ascites around the liver with mildly distention of gallbladder Liver ultrasound shows hepatomegaly, cirrhotic hepatic morphology, ill-defined left hepatic lobe masslike structure, gallbladder sludge and borderline wall thickening, dilated common bile duct (1.7 cm) MRCP shows massive splenomegaly, perihepatic ascitic fluid with mesenteric edema, common bile duct is poorly characterized. Probable thrombus within the left portal vein Plan/recommendation * Consulted GI, recommended MRCP and possible EGD for tomorrow * Empiric antibiotic Flagyl and Rocephin * Protonix * IV fluid DIET: Clear liquids the DVT PROPHYLAXIS: SCDs GI PROPHYLAXIS:: Protonix CODE STATUS: Goal of care discussed for more than 18 minutes, full code DISPOSITION: Med/surge Patient's status and plan discussed with the patient. Case discussed with Dr. Blanton. Plan discussed with: Patient, Other (RN) My Orders My Orders Orders - WILMER MOROCHO RESDIRAZA Procedure Category Date Status Time Morphine Sulfate PHA 01/11/25 In Process Injection 11:45 Mrcp Mri MRI 01/11/25 Resulted 12:15 Date of Service: Jan 11, 2025 Billing Provider: NORBERT BLANTON MD Common Visit Codes: [id number] INP/OBS CARE(HIGH) WILMER MOROCHO Jan 11, 2025 16:41 NORBERT BLANTON MD Jan 12, 2025 21:30
[2025-01-11 20:00] VITALS: PULSE 83; RESP 18; O2SAT 96
[2025-01-11 20:27] VITALS: BP 113/68; PULSE 83; RESP 18; TEMP 98.3; O2SAT 96
[2025-01-11 21:28] VITALS: BP 99/57; PULSE 79; RESP 16; TEMP 98; O2SAT 93
[2025-01-12] VITALS (8 sets, daily range): BP systolic 93–124; BP diastolic 53–62; PULSE 77–100; RESP 16–18; TEMP 97.4–98.4; O2SAT 93–98
[2025-01-12 07:20] LABS: Basophils # (auto) 0.1 10 ^3/uL (0-0.2); Basophils % (auto) 1.4 % (0.0-2.0); Eosinophils # (auto) 0.1 10 ^3/uL (0-0.8); Eosinophils % (auto) 2.4 % (0.0-7.0); Hematocrit 32.4 % (36.0-46.0); Hemoglobin 11.2 g/dL (12.2-16.2); Lymphocytes # (auto) 0.7 10 ^3/uL (0.4-5.4); Lymphocytes % (auto) 16.3 % (10.0-50.0); Mean Corpuscular Hemoglobin 30.5 pg (28.0-32.0); Mean Corpuscular Hgb Conc. 34.5 g/dL (32.0-36.0); Mean Corpuscular Volume 88.5 fL (80.0-100.0); Monocytes # (auto) 0.3 10 ^3/uL (0-1.3); Neutrophils % (auto) 71.9 % (37.0-80.0); Nucleated Red Blood Cells % 0.1 %; Platelet Count (auto) 142 10^3/uL (140-450); Red Blood Cells 3.67 10^6/uL (4.0-5.20); White Blood Cell 4.2 10^3/uL (4.4-10.8)
[2025-01-12 07:28] LABS: Red Cell Distribution Width 21.1 % (11.8-14.3)
[2025-01-12 07:30] LABS: Anion Gap 10 (5-15); Carbon Dioxide 23 mmol/L (20-31); Chloride 105 mmol/L (98-107); Potassium 3.7 mmol/L (3.5-5.1); Sodium 138 mmol/L (136-145)
[2025-01-12 07:33] LABS: Calcium 8.1 mg/dL (8.7-10.4)
[2025-01-12 07:36] LABS: BUN/Creatinine Ratio 15.2 (10.0-20.0); Blood Urea Nitrogen 10 mg/dL (9-23); Glucose 83 mg/dL (74-106)
[2025-01-12] MEDS ORDERED: GADOTERATE MEG 10 MMOL/20ml INJ (0.5MMOL/ml) IV ONE (08:26)
--- NOTE | 2025-01-12 12:18 | DVHSR ---
APPROVED REPORT EXAM: Two-dimensional and M-mode echocardiogram with Doppler and color Doppler. Blood Pressure: 98/59 mmHg INDICATION Rule out cardiac structural cases RISK FACTORS Height: 5'1", DIMENSIONS LVDd4.3 (3.8-5.7cm)LA (2D)2.9 (1.9-4.0cm)Aortic Root3.5 (2.0-3.7cm) LVDs2.7 (2.5-4.0cm)LA (MM) (1.9-4.0cm)Aortic Cusp Exc1.6 (1.5-2.0cm) EF (%) 60.0 (55-70%)Rt. Atrium (1.9-4.0cm)Asc. Aorta cm IVSd0.9 (0.7-1.1cm)RV (D) (1.8-2.4cm) PWd0.8 (0.7-1.1cm) Mitral Valve MitralMitral Stenosis E wave0.67m/sMV Mean GR.mmHg A wave0.74m/sMV Peak GR.mmHg E/A ratio0.92D MVAcm2 DECEL [id number] 1/2 Timems Aortic Valve Aortic ValveAortic Stenosis V10.88m/Nathan Mean GR.4mmHg V21.38m/Nathan Peak GR.8mmHg LVOT Diameter1.8 (1.8-2.4cm)Doppler AVA1.62cm2 Pulmonic Valve V21.15m/s Tricuspid Valve TR Velocity2.48m/s [id number] Other Information Technically limited study due to body habitus. Conclusion lvef 65% normal RV function left atrium enlarged no severe valve abnormalities noted
--- NOTE | 2025-01-12 12:27 | DVH ---
CLINICAL HISTORY: Possible portal vein thrombosis. TECHNIQUE: Multi sequence multi planar MRI images of the abdomen were obtained prior to and after th e administration of 20 mL Clariscan contrast. COMPARISON: Correlation made to MRCP dated 01/11/2025, ultrasound dated 01/11/2025, CT dated 01/11/20. FINDINGS: Motion artifact limits evaluation. The liver is diffusely heterogeneous and enlarged, ras uring up to 20.7 cm in craniocaudal dimension at the midclavicular line, with nodular contour, simila r to prior exams. Heterogeneous mass or conglomeration of masses involving the dome of the liver, pre dominantly involving the right hepatic lobe, but also portions of the left hepatic lobe caudate lobe, suboptimally evaluated due to the motion artifact but measures up to approximately 10.7 x 9.5 x 13.0 cm. Abnormal heterogeneous enhancement in the caudate lobe and conglomeration of lymph nodes near th e anibal hepatis, poorly delineated, likely due to malignant disease involvement in the caudate lobe a djacent metastatic lymph nodes. Filling defect in the left portal vein, probable thrombus with some c ontrast opacification more distally in the left portal vein. Probable filling defects also noted in t he distal branches of the right portal vein and small filling defects in the main portal vein. Spleen is enlarged, measuring up to 16.4 cm in greatest dimension. Pancreas, adrenal glands, and kidneys ar e unremarkable. There is diffuse mesenteric edema [id number] ascites. IMPRESSION: 1. Motion limited study. 2. Large heterogeneously enhancing mass of the hepatic dome and involving adjacent portions of the ri ght hepatic lobe and, to a lesser extent the left hepatic lobe. 3. Heterogeneous mass involving the caudate lobe conglomeration of enlarged lymph nodes of the anibal hepatis, suspected metastatic lymph nodes. 4. Filling defect in the left portal vein, suspected thrombus, which appears to be nonocclusive. Also suspected filling defects in the right portal vein possible small filling defects in the main portal vein. 5. Splenomegaly. 6. Additional findings as described above.
--- NOTE | 2025-01-12 13:48 | DVHPN2 ---
Subjective No changes Changes from previous H/P or p: No Changes Eyes: No Pain, No Vision change, No Conjunctivae inflammation, No Eyelid inflammation, No Other, No Redness ENT: No Ear pain, No Ear discharge, No Nose pain, No Nose discharge, No Nose congestion, No Mouth pain, No Mouth swelling, No Throat pain, No Throat swelling, No Other Cardiovascular: No Chest Pain, No Palpitations, No Orthopnea, No Paroxysmal Noc. Dyspnea, No Edema, No Lt Headedness, No Other Respiratory: No Cough, No Dry, No Shortness of breath, No SOB with excertion, No Wheezing, No Hemoptysis, No Pleuritic Pain, No Sputum, No Other Gastrointestinal: Nausea; No Vomiting; Abdominal Pain; No Diarrhea, No Constipation, No Melena, No Hematochezia, No Other Genitourinary: No Dysuria, No Frequency, No Incontinence, No Hematuria, No Retention, No Other Musculoskeletal: No other, No neck pain, No shoulder pain, No arm pain, No back pain, No hand pain, No leg pain, No foot pain Skin: No Rash, No Lesions, No Jaundice, No Bruising, No Other Objective Vitals Vital Signs Date Time Temp Pulse Resp B/P (MAP) Pulse Ox O2 Delivery O2 Flow Rate FiO2 01/12/25 13:00 97.6 77 16 115/60 (78) 97 97.6 01/12/25 08:00 Room Air* 0 21 Intake/Output Intake and Output 01/12/25 07:00 Intake Total 490 ml Output Total 1500 ml Balance -1010 ml Intake Oral 120 ml IV Total 370 ml Output Other 1500 ml General Appearance: Alert, Oriented X3, Cooperative, No acute distress, mild distress, moderate distress, severe distress, Other Lungs: Clear to auscultation, Normal air movement, Other Cardiovascular: Regular rate, Normal S1, Normal S2, No murmurs, Gallops, Rubs, Other Abdomen: Normal bowel sounds, Soft, No tenderness, No hepatospenomegaly, No masses, Other Medications Current Medications Medications Dose Ordered Sig/Ivis Route Start Time Stop Time Status Last Admin Dose Admin Ceftriaxone Sodium 50 ml @ 100 mls/hr DAILY@09 IV 01/11/25 09:00 01/12/25 09:35 100 MLS/HR Metronidazole 100 ml @ 100 mls/hr Q8HR IV 01/11/25 06:00 01/12/25 05:39 100 MLS/HR Pantoprazole Sodium 40 mg DAILY IV 01/11/25 10:00 01/12/25 09:35 40 MG Morphine Sulfate 1 mg Q6HP PRN IV 01/11/25 11:45 Laboratory Results Laboratory Tests 01/12/25 06:43 Chemistry Test 01/12/25 06:43 Calcium Level 8.1 mg/dL (8.7-10.4) L Microbiology Microbiology Date/Time Source Procedure Growth Status 01/11/25 00:29 Blood Blood Culture - Preliminary Resulted Labs and/or images reviewed: Labs reviewed by me, Image(s) reviewed by me Assessment/Plan Assessment/Plan Hepatomegaly Ascites Dysphagia Dilated common bile duct Hepatic mass Plan Discussed with Dr. Stern IR consult for liver biopsy AFP, CEA, CA 19-9 Monitor labs Full liquid advance as tolerated We will continue to monitor patient Plan discussed with: Patient, Son, Other (RN) My Orders Orders - GISELLE CORNEJO Procedure Category Date Status Time Mechanical Soft Diet DIET 01/12/25 Transmitted Lunch Date of Service: Jan 12, 2025 Billing Provider: GISELLE CORNEJO Common Visit Codes: [id number] INP/OBS CARE(HIGH) GISELLE CORNEJO Jan 12, 2025 13:47
--- NOTE | 2025-01-12 14:36 | DVHPNRES ---
Progress Note Date Seen: Jan 12, 2025 Resident Creating Document: WILMER MOROCHO MARIA C Has the PT tested + for MRSA If YES, has PT been informed?: No Medical Necessity Reason Pt with a Central, PICC or Fol: No Subjective Review of Systems Patient is seen and examined at the bedside. Patient is feeling better since admission has no active abdominal pain. Patient is started on oral intake and can tolerate food. Patient reports: No new complaints, Feels better Changes from previous H/P or p: Changes Objective vital signs Vital Sign Date Time Temp Pulse Resp B/P (MAP) Pulse Ox O2 Delivery O2 Flow Rate FiO2 01/12/25 13:00 97.6 77 16 115/60 (78) 97 97.6 01/12/25 08:00 Room Air* 0 21 Total Intake and Output 01/11/25 01/11/25 01/12/25 15:00 23:00 07:00 Intake Total 170 ml 320 ml 0 ml Output Total 1500 ml Balance -1330 ml 320 ml 0 ml medications Current Medications Medications Dose Ordered Sig/Ivis Route Start Time Stop Time Status Last Admin Dose Admin Ceftriaxone Sodium 50 ml @ 100 mls/hr DAILY@09 IV 01/11/25 09:00 01/12/25 09:35 100 MLS/HR Metronidazole 100 ml @ 100 mls/hr Q8HR IV 01/11/25 06:00 01/12/25 14:17 100 MLS/HR Pantoprazole Sodium 40 mg DAILY IV 01/11/25 10:00 01/12/25 09:35 40 MG Morphine Sulfate 1 mg Q6HP PRN IV 01/11/25 11:45 Examination General Appearance: Alert, Oriented X3, Cooperative, No acute distress HEENT: Atraumatic, PERRLA, EOMI, Mucous membrane moist/pink Respiratory: Clear to auscultation, Normal air movement Cardiovascular: Regular rate, Normal S1, Normal S2, No murmurs, no chest wall tenderness Abdominal: Distended abdomen with positive shifting dullness Extremities: No clubbing, No cyanosis, No edema, Normal pulses, No tenderness/swelling Skin: No rashes, No breakdown, No significant lesion Neuro: Normal gait, Normal speech, Strength at 5/5 X4 ext, Normal tone, Sensation intact, Cranial nerves 3-12 NL, Reflexes 2+ Psych/Mental Status: Mental status NL, Mood NL laboratory and microbiology Laboratory Tests 01/12/25 06:43 Test 01/12/25 06:43 Range/Units Serum Glucose 83 74-106 mg/dL Microbiology Date/Time Source Procedure Growth Status 01/11/25 00:29 Blood Blood Culture - Preliminary Resulted Labs and/or images reviewed: Labs reviewed by me, Image(s) reviewed by me Problem List/Assessment/Plan Problem List/Assessment/Plan Acute on chronic liver failure leading to ascites Abdominal pain likely due to ascites Ascites, likely due to liver failure Transaminitis Moderate protein malnutrition ? Cholelithiasis ? Choledocholithiasis ? Spontaneous bacterial pneumonitis ? Splenomegaly ? Liver mass, possible cancer Hyperbilirubinemia * CT scan shows moderate ascites around the liver with mildly distention of gallbladder * Liver ultrasound shows hepatomegaly, cirrhotic hepatic morphology, ill-defined left hepatic lobe masslike structure, gallbladder sludge and borderline wall thickening, dilated common bile duct (1.7 cm) * MRCP shows massive splenomegaly, perihepatic ascitic fluid with mesenteric edema, common bile duct is poorly characterized. Probable thrombus within the left portal vein * MRI abdomen shows, large heterogeneously enhancing mass of the hepatic dome and involving adjacent portions of the right hepatic lobe and, to a lesser extent the left hepatic lobe, splenomegaly with partial filling defect of left portal vein (suspected thrombus), and possible small filling defect in male portal vein Plan/recommendation * Consulted GI, recommended MRCP and possible EGD for tomorrow * Consulted IR for biopsy * Empiric antibiotic Flagyl and Rocephin * Protonix * IV fluid DIET: Clear liquids diet DVT PROPHYLAXIS: SCDs GI PROPHYLAXIS:: Protonix CODE STATUS: Goal of care discussed for more than 18 minutes, full code DISPOSITION: Med/surge Patient's status and plan discussed with the patient. Case discussed with Dr. Blanton. Plan discussed with: Patient, Other (RN) My Orders My Orders Orders - WILMER MOROCHO RESDIRAZA Procedure Category Date Status Time Abdomen With Contrast MRI 01/12/25 Resulted 16:41 Date of Service: Jan 12, 2025 Billing Provider: NORBERT BLANTON MD Common Visit Codes: [id number] INP/OBS CARE(HIGH) [id number] RESDIENT Jan 12, 2025 14:36 NORBERT BLANTON MD Jan 15, 2025 15:07
[2025-01-12] MEDS ORDERED: VANCOMYCIN PER PHARMACY 0 MG IV SCH (20:00)
[2025-01-12] MEDS: VANCOMYCIN 1.5GM/300ML 300 ML IV ONE ×2 (21:42)
[2025-01-13] VITALS (8 sets, daily range): BP systolic 94–118; BP diastolic 51–98; PULSE 78–95; RESP 16–18; TEMP 97.5–98.2; O2SAT 94–95
[2025-01-13 04:19] LABS: Urine Bacteria None Seen /hpf (None Seen)
[2025-01-13 04:43] LABS: Urine Blood Negative /uL (Negative); Urine Clarity Clear (Clear); Urine Color Yellow (Yellow); Urine Mucus FEW (None Seen); Urine Protein, UAD Negative (Negative); Urine Squamous Epithelial Cell FEW /hpf (<5); Urine Urobilinogen 2 mg/dL (Negative); Urine WBC 1 /HPF (0-5); Urine pH 5.5 (5.0-9.0)
[2025-01-13 04:47] LABS: Amphetamine Screen, Urine Neg (NEGATIVE); Barbiturate Scree,Urine Neg (NEGATIVE); Benzodiazephine Screen, Urine Neg (NEGATIVE); Cannabinoid Screen, Urine Neg (NEGATIVE); Cocaine Screen, Urine Neg (NEGATIVE); Opiate Scree,Urine Neg (NEGATIVE); Phencyclidine Screen, Urine Neg (NEGATIVE)
--- NOTE | 2025-01-13 07:25 | ECG ---
[facility] Test Date: 2025-01-13 Test Time: 03:17:59 Pat Name: SIMONE MARTELL Department: Room: 0297 B Gender: F Tactical Debriefer Officer: Ravindra : 1965 Requested By: WILMER MOROCHO Order Number: [id number] Reading MD: Luis Shipley Measurements Intervals Celeste Rate: 81 P: 17 ID: [id number] QRS: 18 QRSD: 88 T: 18 QT: 388 QTc: 451 Interpretive Statements Sinus rhythm Nonspecific T abnormalities, anterior leads Electronically Signed On 01-15-2025 21:11:32 PDT by Luis Shipley Please click the below link to view image of tracing.
[2025-01-13 07:28] LABS: Basophils # (auto) 0.1 10 ^3/uL (0-0.2); Basophils % (auto) 1.3 % (0.0-2.0); Eosinophils # (auto) 0.1 10 ^3/uL (0-0.8); Eosinophils % (auto) 2.7 % (0.0-7.0); Hematocrit 33.4 % (36.0-46.0); Hemoglobin 11.3 g/dL (12.2-16.2); Lymphocytes # (auto) 0.7 10 ^3/uL (0.4-5.4); Lymphocytes % (auto) 15.3 % (10.0-50.0); Mean Corpuscular Hemoglobin 30.2 pg (28.0-32.0); Mean Corpuscular Hgb Conc. 33.9 g/dL (32.0-36.0); Mean Corpuscular Volume 89.1 fL (80.0-100.0); Monocytes # (auto) 0.4 10 ^3/uL (0-1.3); Monocytes % (auto) 9.7 % (0.0-12.0); Neutrophils # (auto) 3.2 10 ^3/uL (1.6-8.6); Nucleated Red Blood Cells % 0.1 %; Platelet Count (auto) 157 10^3/uL (140-450); Red Blood Cells 3.75 10^6/uL (4.0-5.20); Red Cell Distribution Width 21.3 % (11.8-14.3); White Blood Cell 4.5 10^3/uL (4.4-10.8)
[2025-01-13 07:44] LABS: Anion Gap 8 (5-15); Carbon Dioxide 23 mmol/L (20-31); Potassium 4.2 mmol/L (3.5-5.1); Sodium 138 mmol/L (136-145)
[2025-01-13 07:46] LABS: Calcium 8.8 mg/dL (8.7-10.4)
[2025-01-13 07:50] LABS: Glucose 98 mg/dL (74-106)
[2025-01-13 07:51] LABS: BUN/Creatinine Ratio 13.8 (10.0-20.0); Blood Urea Nitrogen 11 mg/dL (9-23)
[2025-01-13] MEDS ORDERED: GELATIN 1 SPONGE SIZE 50 TOP ONE (07:56)
[2025-01-13 07:58] LABS: Chloride 107 mmol/L (98-107)
[2025-01-13 09:07] LABS: AFP Serum Tumor Marker 80.6 ng/mL (0.0-9.2)
--- NOTE | 2025-01-13 09:12 | DVH ---
PROCEDURE: Ultrasound-guided biopsy Procedural Personnel Attending physician(s): Georgi Littlejohn Fellow physician(s): None Resident physician(s): None Advanced practice provider(s): None Procedure Date (/yyyy): 01/13/2025 Pre-procedure diagnosis: Liver mass Post-procedure diagnosis: Same Indication: Histopathologic diagnosis Previous biopsy of same target: No Additional clinical history: None Complications: No immediate complications. IMPRESSION: Ultrasound-guided biopsy of right hepatic lobe mass. Plan: Specimen(s) sent for evaluation. PROCEDURE SUMMARY: - Percutaneous US-guided coaxial core needle biopsy - Additional procedure(s): None PROCEDURE DETAILS: Pre-procedure Reference imaging for biopsy target: MRCP 01/11/25 Consent: Informed consent for the procedure including risks, benefits and alternatives was obtained a nd time-out was performed prior to the procedure. Preparation: The site was prepared and draped using maximal sterile barrier technique including cutan eous antisepsis. Anesthesia/sedation Level of anesthesia/sedation: No sedation Anesthesia/sedation administered by: Not applicable Total intra-service sedation time (minutes): 0 Imaging prior to biopsy The patient was positioned left lateral decubitus oblique. Initial imaging was performed. Biopsy target: - Organ or target location: Liver - Laterality: Single Organ - Maximal diameter (cm): 10.9 Other findings: None Biopsy Local anesthesia was administered. Under US guidance, the biopsy needle was advanced to the target an d biopsy was performed. Coaxial needle: 17 gauge Core needle biopsy device: [employer] Core needle size: 18 gauge Number of core specimens: 2 On-site assessment of biopsy adequacy: No Additional sampling recommendations: None Preliminary assessment of sample adequacy: Not applicable Needle removal The biopsy needle was removed and a sterile dressing was applied. Tract embolization: Gelfoam pledgets Imaging following biopsy Immediate post-biopsy ultrasound was performed. Post-biopsy imaging findings: Additional Details Additional description of procedure: None Registry event: V/3/g Device used: None Equipment details: None Unique Device Identifiers: Not available Specimens removed: Biopsy samples as detailed above Estimated blood loss (mL): Less than 10 Standardized report: [id number] Attestation Signer name: Georgi Littlejohn I attest that I was present for the entire procedure. I reviewed the stored images and agree with the report as written.
--- NOTE | 2025-01-13 12:52 | DVH ---
EXAM: XY CHEST PORTABLE CLINICAL HISTORY: PER PROTOCOL TECHNIQUE: Single AP view of the chest WID: COMPARISON: None FINDINGS: Lines and tubes: None Chest: The heart size and pulmonary vasculature is within normal limits. Calcified plaque projects over the aortic arch. No pleural effusion, pneumothorax, or consolidation. Linear Bibasilar opacity, greater on the right. The osseous structures are grossly intact. IMPRESSION: No acute cardiopulmonary abnormality.
[2025-01-13] MEDS: VANCOMYCIN 750mg/150ml 150 ML IV SCH (13:17)
[2025-01-13] MEDS: HYDROcodone-ACET 5/325MG TAB PO ONE (22:19)
--- NOTE | 2025-01-13 22:20 | DVHPNRES ---
Progress Note Date Seen: Jan 14, 2025 Resident Creating Document: WILMER MOROCHO MARIA C Has the PT tested + for MRSA If YES, has PT been informed?: No Medical Necessity Reason Pt with a Central, PICC or Fol: No Subjective Review of Systems Patient seen and examined at the bedside due to duration feeling better since admission. Patient reports: No new complaints, Feels better Changes from previous H/P or p: Changes (RN) Objective vital signs Vital Sign Date Time Temp Pulse Resp B/P (MAP) Pulse Ox O2 Delivery O2 Flow Rate FiO2 01/13/25 16:59 98.2 78 18 118/62 (80) 94 98.2 01/13/25 08:00 Room Air* 0 21 Total Intake and Output 01/12/25 01/12/25 01/13/25 15:00 23:00 07:00 Intake Total 100 ml 100 ml 500 ml Balance 100 ml 100 ml 500 ml medications Current Medications Medications Dose Ordered Sig/Ivis Route Start Time Stop Time Status Last Admin Dose Admin Ceftriaxone Sodium 50 ml @ 100 mls/hr DAILY@09 IV 01/11/25 09:00 01/13/25 09:00 100 MLS/HR Metronidazole 100 ml @ 100 mls/hr Q8HR IV 01/11/25 06:00 01/13/25 21:04 100 MLS/HR Pantoprazole Sodium 40 mg DAILY IV 01/11/25 10:00 01/13/25 09:00 40 MG Morphine Sulfate 1 mg Q6HP PRN IV 01/11/25 11:45 Vancomycin HCl 0 ml @ 0 mls/hr UD IV 01/12/25 20:00 Vancomycin HCl 150 ml @ 150 mls/hr Q12H IV 01/13/25 12:00 01/13/25 13:17 150 MLS/HR Examination General Appearance: Alert, Oriented X3, Cooperative, No acute distress HEENT: Atraumatic, PERRLA, EOMI, Mucous membrane moist/pink Respiratory: Clear to auscultation, Normal air movement Cardiovascular: Regular rate, Normal S1, Normal S2, No murmurs, no chest wall tenderness Abdominal: Mild abdominal distention Extremities: No clubbing, No cyanosis, No edema, Normal pulses, No tenderness/swelling Skin: No rashes, No breakdown, No significant lesion Neuro: Normal gait, Normal speech, Strength at 5/5 X4 ext, Normal tone, Sensation intact, Cranial nerves 3-12 NL, Reflexes 2+ Psych/Mental Status: Mental status NL, Mood NL laboratory and microbiology Laboratory Tests 01/13/25 06:59 Test 01/13/25 06:59 Range/Units Serum Glucose 98 74-106 mg/dL Microbiology Date/Time Source Procedure Growth Status 01/11/25 00:29 Blood Blood Culture - Preliminary Resulted Labs and/or images reviewed: Labs reviewed by me, Image(s) reviewed by me Problem List/Assessment/Plan Problem List/Assessment/Plan Acute on chronic liver failure leading to ascites Abdominal pain likely due to ascites Ascites, likely due to liver failure Bacteremia, due to Streptococcus alpha hemolytic Transaminitis Moderate protein malnutrition ? Cholelithiasis ? Choledocholithiasis ? Spontaneous bacterial pneumonitis ? Splenomegaly ? Liver mass, possible cancer Hyperbilirubinemia * CT scan shows moderate ascites around the liver with mildly distention of gallbladder * Liver ultrasound shows hepatomegaly, cirrhotic hepatic morphology, ill-defined left hepatic lobe masslike structure, gallbladder sludge and borderline wall thickening, dilated common bile duct (1.7 cm) * MRCP shows massive splenomegaly, perihepatic ascitic fluid with mesenteric edema, common bile duct is poorly characterized. Probable thrombus within the left portal vein * MRI abdomen shows, large heterogeneously enhancing mass of the hepatic dome and involving adjacent portions of the right hepatic lobe and, to a lesser extent the left hepatic lobe, splenomegaly with partial filling defect of left portal vein (suspected thrombus), and possible small filling defect in male portal vein Plan/recommendation * Consulted GI, recommended MRCP and possible EGD for tomorrow * Consulted IR for biopsy * Empiric antibiotic vancomycin and Rocephin * Protonix * IV fluid DIET: Clear liquids diet DVT PROPHYLAXIS: SCDs GI PROPHYLAXIS:: Protonix CODE STATUS: Goal of care discussed for more than 18 minutes, full code DISPOSITION: Med/surge Due to blood culture positive for Streptococcus alpha hemolytic, the patient has been given empiric antibiotic of vancomycin and Rocephin. Second blood culture set has been ordered, results pending. Patient's status and plan discussed with the patient. Case discussed with Dr. Maddox. Plan discussed with: Patient, Daughter, Son, Other (RN) My Orders My Orders Orders - WILMER MOROCHO Procedure Category Date Status Time Chest Portable XY 01/13/25 Resulted 02:48 Us Guidance For US 01/13/25 Resulted Needle Placeme 07:09 Basic Metabolic Panel LAB 01/14/25 Verified 04:00 WILMER MOROCHO Jan 13, 2025 22:20
--- NOTE | 2025-01-13 22:32 | DVHPN2 ---
Progress Note - Dictate Date Seen: Jan 13, 2025 Has the PT tested + for MRSA If YES, has PT been informed?: No Medical Necessity Reason Pt with a Central, PICC or Fol: No Subjective No new complaints, patient is sleeping comfortably at the time of visit No nausea vomiting reported S/P image guided liver biopsy today CEA level normal, serum alpha fetoprotein, CA 19 nine elevated vital signs Vital Sign Date Time Temp Pulse Resp B/P (MAP) Pulse Ox O2 Delivery O2 Flow Rate FiO2 01/13/25 16:59 98.2 78 18 118/62 (80) 94 98.2 01/13/25 08:00 Room Air* 0 21 Total Intake and Output 01/12/25 01/12/25 01/13/25 15:00 23:00 07:00 Intake Total 100 ml 100 ml 500 ml Balance 100 ml 100 ml 500 ml medications Current Medications Medications Dose Ordered Sig/Ivis Route Start Time Stop Time Status Last Admin Dose Admin Ceftriaxone Sodium 50 ml @ 100 mls/hr DAILY@09 IV 01/11/25 09:00 01/13/25 09:00 100 MLS/HR Metronidazole 100 ml @ 100 mls/hr Q8HR IV 01/11/25 06:00 01/13/25 21:04 100 MLS/HR Pantoprazole Sodium 40 mg DAILY IV 01/11/25 10:00 01/13/25 09:00 40 MG Morphine Sulfate 1 mg Q6HP PRN IV 01/11/25 11:45 Vancomycin HCl 0 ml @ 0 mls/hr UD IV 01/12/25 20:00 Vancomycin HCl 150 ml @ 150 mls/hr Q12H IV 01/13/25 12:00 01/13/25 13:17 150 MLS/HR objective General Appearance: Alert, Oriented X3, Cooperative, No acute distress, Lungs: Clear to auscultation, Normal air movement, Other Cardiovascular: Regular rate, Normal S1, Normal S2, No murmurs, Gallops, Rubs, Other Abdomen: Normal bowel sounds, Soft, No tenderness, No hepatospenomegaly, No masses, Ext no c/c/e laboratory and microbiology Laboratory Tests 01/13/25 06:59 Test 01/13/25 06:59 Range/Units Serum Glucose 98 74-106 mg/dL MRI ABD : IMPRESSION: 1. Motion limited study. 2. Large heterogeneously enhancing mass of the hepatic dome and involving adjacent portions of the right hepatic lobe and, to a lesser extent the left hepatic lobe. 3. Heterogeneous mass involving the caudate lobe conglomeration of enlarged lymph nodes of the anibal hepatis, suspected metastatic lymph nodes. 4. Filling defect in the left portal vein, suspected thrombus, which appears to be nonocclusive. Also suspected filling defects in the right portal vein possible small filling defects in the main portal vein. 5. Splenomegaly. MRCP IMPRESSION: Extensive hepatic infiltrative masses/ lesions consistent with malignancy/ metastatic disease. This includes right hepatic lobe lesion measuring 13 x 12 cm, posterior right hepatic lobe lesion measuring 8 x 6 cm. There is also poorly defined /conglomerate lymphadenopathy/ mass in the region of the caudate lobe/anibal hepatis measuring 7 x 6.1 cm with individual lesions measuring 4.9 cm, 3.6 cm. These lesions all demonstrate diffusion restriction and are compatible with malignancy / metastatic disease. Recommend multiphasic MRI abdomen with and without contrast and oncology, GI consultation Probable thrombus within the left portal vein which can be further evaluated on multiphasic MRI abdomen. The common bile duct is overall poorly characterized but appears to be compressed from the caudate / anibal hepatis mass/lymphadenopathy. Gallbladder partially distended. Perihepatic ascites fluid. Mesenteric edema. Massive splenomegaly.. 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
[2025-01-13 22:46] LABS: Basophils # (auto) 0.1 10 ^3/uL (0-0.2); Basophils % (auto) 1.1 % (0.0-2.0); Eosinophils # (auto) 0.1 10 ^3/uL (0-0.8); Eosinophils % (auto) 1.8 % (0.0-7.0); Hematocrit 33.9 % (36.0-46.0); Hemoglobin 11.1 g/dL (12.2-16.2); Lymphocytes # (auto) 0.8 10 ^3/uL (0.4-5.4); Mean Corpuscular Hemoglobin 29.5 pg (28.0-32.0); Mean Corpuscular Hgb Conc. 32.7 g/dL (32.0-36.0); Mean Corpuscular Volume 90.2 fL (80.0-100.0); Monocytes # (auto) 0.5 10 ^3/uL (0-1.3); Monocytes % (auto) 8.7 % (0.0-12.0); Neutrophils # (auto) 3.9 10 ^3/uL (1.6-8.6); Neutrophils % (auto) 73.4 % (37.0-80.0); Nucleated Red Blood Cells % 0.2 %; Platelet Count (auto) 163 10^3/uL (140-450); Red Blood Cells 3.76 10^6/uL (4.0-5.20); Red Cell Distribution Width 21.6 % (11.8-14.3); White Blood Cell 5.3 10^3/uL (4.4-10.8)
[2025-01-14] VITALS (8 sets, daily range): BP systolic 96–116; BP diastolic 56–70; PULSE 80–90; RESP 16–18; TEMP 97.3–98.3; O2SAT 92–96
[2025-01-14 07:06] LABS: Basophils # (auto) 0.1 10 ^3/uL (0-0.2); Basophils % (auto) 1.5 % (0.0-2.0); Eosinophils # (auto) 0.1 10 ^3/uL (0-0.8); Eosinophils % (auto) 1.8 % (0.0-7.0); Hematocrit 32.6 % (36.0-46.0); Hemoglobin 10.9 g/dL (12.2-16.2); Lymphocytes # (auto) 0.8 10 ^3/uL (0.4-5.4); Lymphocytes % (auto) 15.8 % (10.0-50.0); Mean Corpuscular Hgb Conc. 33.5 g/dL (32.0-36.0); Mean Corpuscular Volume 89.4 fL (80.0-100.0); Monocytes # (auto) 0.5 10 ^3/uL (0-1.3); Monocytes % (auto) 10.6 % (0.0-12.0); Neutrophils # (auto) 3.4 10 ^3/uL (1.6-8.6); Neutrophils % (auto) 70.3 % (37.0-80.0); Nucleated Red Blood Cells % 0.1 %; Platelet Count (auto) 155 10^3/uL (140-450); Red Blood Cells 3.64 10^6/uL (4.0-5.20); Red Cell Distribution Width 21.5 % (11.8-14.3); White Blood Cell 4.8 10^3/uL (4.4-10.8)
[2025-01-14 07:14] LABS: Sodium 138 mmol/L (136-145)
[2025-01-14 07:15] LABS: Anion Gap 8 (5-15); Carbon Dioxide 23 mmol/L (20-31)
[2025-01-14 07:20] LABS: BUN/Creatinine Ratio 13.5 (10.0-20.0); Blood Urea Nitrogen 10 mg/dL (9-23); Glucose 89 mg/dL (74-106)
[2025-01-14 07:25] LABS: Calcium 8.5 mg/dL (8.7-10.4); Chloride 107 mmol/L (98-107)
--- NOTE | 2025-01-14 18:21 | DVHPNRES ---
Progress Note Date Seen: Jan 14, 2025 Resident Creating Document: WILMER MOROCHO MARIA C Has the PT tested + for MRSA If YES, has PT been informed?: No Medical Necessity Reason Pt with a Central, PICC or Fol: No Subjective Review of Systems Patient seen and examined at the bedside. The patient was feeling better since admission. Patient reports: No new complaints, Feels better Changes from previous H/P or p: Changes Objective vital signs Vital Sign Date Time Temp Pulse Resp B/P (MAP) Pulse Ox O2 Delivery O2 Flow Rate FiO2 01/14/25 16:30 98.0 80 16 99/60 (73) 95 98.0 01/14/25 08:00 Room Air* 0 21 Total Intake and Output 01/13/25 01/13/25 01/14/25 15:00 23:00 07:00 Intake Total 200 ml 200 ml 250 ml Balance 200 ml 200 ml 250 ml medications Current Medications Medications Dose Ordered Sig/Ivis Route Start Time Stop Time Status Last Admin Dose Admin Ceftriaxone Sodium 50 ml @ 100 mls/hr DAILY@09 IV 01/11/25 09:00 01/14/25 09:29 100 MLS/HR Metronidazole 100 ml @ 100 mls/hr Q8HR IV 01/11/25 06:00 01/14/25 14:00 100 MLS/HR Pantoprazole Sodium 40 mg DAILY IV 01/11/25 10:00 01/14/25 09:29 40 MG Morphine Sulfate 1 mg Q6HP PRN IV 01/11/25 11:45 Vancomycin HCl 0 ml @ 0 mls/hr UD IV 01/12/25 20:00 Vancomycin HCl 150 ml @ 150 mls/hr Q12H IV 01/13/25 12:00 01/14/25 12:00 150 MLS/HR Examination General Appearance: Alert, Oriented X3, Cooperative, No acute distress HEENT: Atraumatic, PERRLA, EOMI, Mucous membrane moist/pink Respiratory: Clear to auscultation, Normal air movement Cardiovascular: Regular rate, Normal S1, Normal S2, No murmurs, no chest wall tenderness Abdominal: Mild abdominal distention Extremities: No clubbing, No cyanosis, No edema, Normal pulses, No tenderness/swelling Skin: No rashes, No breakdown, No significant lesion Neuro: Normal gait, Normal speech, Strength at 5/5 X4 ext, Normal tone, Sensation intact, Cranial nerves 3-12 NL, Reflexes 2+ Psych/Mental Status: Mental status NL, Mood NL laboratory and microbiology Laboratory Tests 01/14/25 06:40 Test 01/14/25 06:40 Range/Units Serum Glucose 89 74-106 mg/dL Microbiology Date/Time Source Procedure Growth Status 01/11/25 00:29 Blood Blood Culture - Preliminary Resulted Labs and/or images reviewed: Labs reviewed by me, Image(s) reviewed by me Problem List/Assessment/Plan Problem List/Assessment/Plan Acute on chronic liver failure leading to ascites Abdominal pain likely due to ascites Ascites, likely due to liver failure Bacteremia, due to Streptococcus alpha hemolytic Transaminitis Moderate protein malnutrition ? Cholelithiasis ? Choledocholithiasis ? Spontaneous bacterial pneumonitis ? Splenomegaly ? Liver mass, possible cancer Hyperbilirubinemia * CT scan shows moderate ascites around the liver with mildly distention of gallbladder * Liver ultrasound shows hepatomegaly, cirrhotic hepatic morphology, ill-defined left hepatic lobe masslike structure, gallbladder sludge and borderline wall thickening, dilated common bile duct (1.7 cm) * MRCP shows massive splenomegaly, perihepatic ascitic fluid with mesenteric edema, common bile duct is poorly characterized. Probable thrombus within the left portal vein * MRI abdomen shows, large heterogeneously enhancing mass of the hepatic dome and involving adjacent portions of the right hepatic lobe and, to a lesser extent the left hepatic lobe, splenomegaly with partial filling defect of left portal vein (suspected thrombus), and possible small filling defect in male portal vein Plan/recommendation * Consulted GI, recommended MRCP and possible EGD for tomorrow * Consulted IR for biopsy * Empiric antibiotic vancomycin and Rocephin * Protonix * IV fluid DIET: Clear liquids diet DVT PROPHYLAXIS: SCDs GI PROPHYLAXIS:: Protonix CODE STATUS: Goal of care discussed for more than 18 minutes, full code DISPOSITION: Med/surge Due to blood culture positive for Streptococcus alpha hemolytic, the patient has been given empiric antibiotic of vancomycin and Rocephin. Second blood culture set has been ordered, results pending. Patient's status and plan discussed with the patient. Case discussed with Dr. Maddox. Plan discussed with: Patient, Daughter, Son, Other (RN) My Orders My Orders Orders - WILMER MOROCHO Procedure Category Date Status Time Blood Culture FRANCISCA 01/14/25 In Process 07:36 WILMER MOROCHO Jan 14, 2025 18:20
--- NOTE | 2025-01-14 23:06 | DVHPN2 ---
Progress Note - Dictate Date Seen: Jan 14, 2025 Has the PT tested + for MRSA If YES, has PT been informed?: No Medical Necessity Reason Pt with a Central, PICC or Fol: No Subjective Patient cleared swallow evaluation, dietary recommendations noted and diet advanced No nausea vomiting reported S/P image guided liver biopsy yesterday CEA level normal, serum alpha fetoprotein, CA 19 nine elevated vital signs Vital Sign Date Time Temp Pulse Resp B/P (MAP) Pulse Ox O2 Delivery O2 Flow Rate FiO2 01/14/25 21:00 97.9 86 16 100/70 (80) 95 97.9 01/14/25 20:00 Room Air* 0 21 Total Intake and Output 01/13/25 01/13/25 01/14/25 15:00 23:00 07:00 Intake Total 200 ml 200 ml 250 ml Balance 200 ml 200 ml 250 ml medications Current Medications Medications Dose Ordered Sig/Viis Route Start Time Stop Time Status Last Admin Dose Admin Ceftriaxone Sodium 50 ml @ 100 mls/hr DAILY@09 IV 01/11/25 09:00 01/14/25 09:29 100 MLS/HR Metronidazole 100 ml @ 100 mls/hr Q8HR IV 01/11/25 06:00 01/14/25 21:43 100 MLS/HR Pantoprazole Sodium 40 mg DAILY IV 01/11/25 10:00 01/14/25 09:29 40 MG Morphine Sulfate 1 mg Q6HP PRN IV 01/11/25 11:45 Vancomycin HCl 0 ml @ 0 mls/hr UD IV 01/12/25 20:00 Vancomycin HCl 150 ml @ 150 mls/hr Q12H IV 01/13/25 12:00 01/14/25 12:00 150 MLS/HR objective General Appearance: Alert, Oriented X3, Cooperative, No acute distress, Lungs: Clear to auscultation, Normal air movement, Other Cardiovascular: Regular rate, Normal S1, Normal S2, No murmurs, Gallops, Rubs, Other Abdomen: Normal bowel sounds, Soft, No tenderness, No hepatospenomegaly, No masses, Ext no c/c/e laboratory and microbiology Laboratory Tests 01/14/25 06:40 Test 01/14/25 06:40 Range/Units Serum Glucose 89 74-106 mg/dL Problems(with codes): (1) Liver masses (2) Intractable abdominal pain (3) Liver cirrhosis (4) Hyperbilirubinemia Prognosis Plan Continue conservative management for now IV Protonix 40 mg daily ; monitor labs Chest CT to further evaluate any thoracic involvement 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
[2025-01-15 01:00] VITALS: BP 97/64; PULSE 85; RESP 16; TEMP 97.9; O2SAT 94
[2025-01-15 05:00] VITALS: BP 99/64; PULSE 85; RESP 17; TEMP 98.1; O2SAT 93
[2025-01-15 06:20] LABS: Basophils # (auto) 0.1 10 ^3/uL (0-0.2); Basophils % (auto) 1.9 % (0.0-2.0); Eosinophils # (auto) 0.1 10 ^3/uL (0-0.8); Eosinophils % (auto) 2.9 % (0.0-7.0); Hematocrit 32.5 % (36.0-46.0); Hemoglobin 10.9 g/dL (12.2-16.2); Lymphocytes # (auto) 0.7 10 ^3/uL (0.4-5.4); Lymphocytes % (auto) 15.9 % (10.0-50.0); Mean Corpuscular Hemoglobin 30.1 pg (28.0-32.0); Mean Corpuscular Hgb Conc. 33.5 g/dL (32.0-36.0); Mean Corpuscular Volume 89.8 fL (80.0-100.0); Monocytes # (auto) 0.4 10 ^3/uL (0-1.3); Monocytes % (auto) 8.9 % (0.0-12.0); Neutrophils % (auto) 70.4 % (37.0-80.0); Nucleated Red Blood Cells % 0.2 %; Platelet Count (auto) 159 10^3/uL (140-450); Red Blood Cells 3.61 10^6/uL (4.0-5.20); Red Cell Distribution Width 21.7 % (11.8-14.3); White Blood Cell 4.3 10^3/uL (4.4-10.8)
[2025-01-15 06:27] LABS: Anion Gap 9 (5-15); Carbon Dioxide 20 mmol/L (20-31); Chloride 107 mmol/L (98-107); Potassium 3.7 mmol/L (3.5-5.1); Sodium 136 mmol/L (136-145)
[2025-01-15 06:33] LABS: BUN/Creatinine Ratio 15.8 (10.0-20.0); Glucose 80 mg/dL (74-106)
[2025-01-15 06:44] LABS: Blood Urea Nitrogen 9 mg/dL (9-23)
[2025-01-15 08:00] VITALS: PULSE 88
[2025-01-15 08:11] VITALS: PULSE 89; RESP 18
[2025-01-15] MEDS ORDERED: IOHEXOL 300 MG/ML 100ML BOTTLE IJ ONE (08:34)
[2025-01-15 08:45] VITALS: BP 101/60; PULSE 79; RESP 16; TEMP 98.3; O2SAT 93
--- NOTE | 2025-01-15 11:48 | DVH ---
Procedure: CT CHEST WITH CONTRAST 01/15/2025 09:33 AM History: r/o chest metastases Comparison: None Technique: After the uneventful administration of contrast intravenously, CT imaging was performed th rough the chest. Coronal and sagittal reformations were performed by the technologist. 3D image postprocessing was performed on a dedicated workstation and images were used for interpretat ion and reporting. Radiation Dose : CT Dose: CTDI volume is 17.91 mGy. Dose-length product is 536.11 mGy*cm Findings: Lower neck: Normal thyroid. Lungs: No focal consolidation. Increased interstitial prominence. This is likely related to componen t of CHF or fluid overload. Low lung volumes. Dependent atelectasis. Right lower lobe subsegmental a telectasis/consolidation. Heart/Vascular Structures: Cardiomegaly. Coronary artery calcifications. Vascular calcifications of t he aorta. Lymph Nodes: No adenopathy Pleura: No pleural effusion or significant pneumothorax. Musculoskeletal: No acute osseous abnormality. Soft tissues: Normal. Upper abdomen: Diffusely heterogeneous enhancing mass in the right hepatic lobe. Splenomegaly. Small volume ascites. IMPRESSION: No thoracic metastases.
[2025-01-15] MEDS ORDERED: AUG875T PO (12:24)
--- NOTE | 2025-01-15 12:25 | DVHDSRES ---
Discharge Summary Date of Admission Resident Creating Document: WILMER MOROCHO RESDIENT Jan 10, 2025 at 23:43 Date of Discharge: Jan 15, 2025 Labs/Diagnostic Data: Laboratory Results Test 01/15/25 04:43 01/14/25 23:08 01/13/25 03:19 01/12/25 06:43 White Blood Count 4.3 10^3/uL (4.4-10.8) Red Blood Count 3.61 10^6/uL (4.0-5.20) Hemoglobin 10.9 g/dL (12.2-16.2) Hematocrit 32.5 % (36.0-46.0) Mean Corpuscular Volume 89.8 fL (80.0-100.0) Mean Corpuscular Hemoglobin 30.1 pg (28.0-32.0) Mean Corpuscular Hemoglobin Concent 33.5 g/dL (32.0-36.0) Red Cell Distribution Width 21.7 % (11.8-14.3) Platelet Count 159 10^3/uL (140-450) Mean Platelet Volume 7.7 fL (6.9-10.8) Neutrophils (%) (Auto) 70.4 % (37.0-80.0) Lymphocytes (%) (Auto) 15.9 % (10.0-50.0) Monocytes (%) (Auto) 8.9 % (0.0-12.0) Eosinophils (%) (Auto) 2.9 % (0.0-7.0) Basophils (%) (Auto) 1.9 % (0.0-2.0) Neutrophils # (Auto) 3.0 10 ^3/uL (1.6-8.6) Lymphocytes # (Auto) 0.7 10 ^3/uL (0.4-5.4) Monocytes # (Auto) 0.4 10 ^3/uL (0-1.3) Eosinophils # (Auto) 0.1 10 ^3/uL (0-0.8) Basophils # (Auto) 0.1 10 ^3/uL (0-0.2) Nucleated Red Blood Cells 0.2 % Sodium Level 136 mmol/L (136-145) Potassium Level 3.7 mmol/L (3.5-5.1) Chloride Level 107 mmol/L (98-107) Carbon Dioxide Level 20 mmol/L (20-31) Anion Gap 9 (5-15) Blood Urea Nitrogen 9 mg/dL (9-23) Creatinine 0.57 mg/dL (0.550-1.02) Glomerular Filtration Rate Calc 104 mL/min (>90) BUN/Creatinine Ratio 15.8 (10.0-20.0) Serum Glucose 80 mg/dL (74-106) Calcium Level 8.0 mg/dL (8.7-10.4) Vancomycin Level Trough 14.6 ug/mL (5-10) Urine Color Yellow (Yellow) Urine Clarity Clear (Clear) Urine pH 5.5 (5.0-9.0) Urine Specific [place] 1.030 (1.001-1.035) Urine Protein Negative (Negative) Urine Ketones Negative (Negative) Urine Blood Negative /uL (Negative) Urine Nitrite Negative (Negative) Urine Bilirubin Negative (Negative) Urine Urobilinogen 2 mg/dL (Negative) Urine Leukocyte Esterase Negative /uL (Negative) Urine RBC None seen /hpf (0 - 4) Urine Microscopic WBC 1 /HPF (0-5) Urine Squamous Epithelial Cells Few /hpf (<5) Urine Bacteria None seen /hpf (None Seen) Urine Mucus Few (None Seen) Urine Glucose Normal mg/dL (Normal) Urine Opiates Screen Neg (NEGATIVE) Urine Fentanyl Screen Neg (NEGATIVE) Urine Barbiturates Screen Neg (NEGATIVE) Urine Phencyclidine Screen Neg (NEGATIVE) Urine Amphetamines Screen Neg (NEGATIVE) Urine Benzodiazepines Screen Neg (NEGATIVE) Urine Cocaine Screen Neg (NEGATIVE) Urine Cannabinoids Screen Neg (NEGATIVE) Tumor Marker Alpha Fetoprotein 80.6 ng/mL (0.0-9.2) Carcinoembryonic Antigen 2.91 ng/mL (<=5.0) CA 19-9 Antigen 246 U/mL (0-35) Test 01/11/25 00:29 Prothrombin Time 13.6 sec (9.3-11.8) Prothrombin Time INR 1.32 (0.9-1.15) Lactic Acid Level 1.9 mmol/L (0.4-2.0) Iron Level 63 ug/dL (50-170) Total Iron Binding Capacity 257 ug/dL (250-425) Percent Iron Saturation 24.5 % (15-50) Ferritin 321.0 ng/mL (10-291) Total Bilirubin 1.6 mg/dL (0.2-1.0) Aspartate Amino Transferase (AST) 161 U/L (<34) Alanine Aminotransferase (ALT) 44 U/L (7-40) Alkaline Phosphatase 328 U/L (46-116) Ammonia 22 umol/L (11-32) Total Protein 8.9 g/dL (5.7-8.2) Albumin 2.9 g/dL (3.2-4.8) Lipase 48 U/L (12-53) Thyroid Stimulating Hormone (TSH) 6.27 uIU/mL (0.55-4.78) Free Thyroxine (T4) Calculated 1.20 ng/dL (0.89-1.76) Free Triiodothyronine (T3) pg/mL 2.56 pg/mL (2.3-4.2) Plasma/Serum Blood Alcohol < 3.0 mg/dL (<10) Hepatitis A Antibody Total Positive (Negative) Hepatitis B Surface Antigen Negative (Negative) Hepatitis B Surface Antibody Negative (Negative) Hepatitis B Core Total Antibody Negative (Negative) Hepatitis C Antibody Negative (Negative) Other Laboratory Tests 01/15/25 04:43 Brief Hx & Hospital Course: Ms. Rao Gilbert, 59-year-old female without any known previous medical history except chronic anemia presents to the emergency department from home with a one-month history of progressively worsening generalized weakness, dizziness, poor appetite, and a sensation of abdominal tightness or fullness, which she describes as discomfort rather than pain. She reports eating very little but is able to tolerate and retain food. The abdominal sensation occurs with or without eating. She denies associated symptoms such as nausea, vomiting, diarrhea, back pain, chest pain, or shortness of breath. She has no known medical history or allergies. She arrived ambulatory, and the severity of her symptoms is described as moderate. Limited history, poor historian, no previous hospitalization noted. Hospital course: The patient was admitted at the line of acute on chronic liver failure leading to ascites. CT scan shows moderate ascites around the liver with mildly distention of gallbladder. Blood culture showed Gram-positive cocci in chain, the patient was started on empiric antibiotic of vancomycin, Rocephin and IV fluid. Liver ultrasound shows hepatomegaly, cirrhotic hepatic morphology, ill- defined left hepatic lobe masslike structure, gallbladder sludge and borderline wall thickening, dilated common bile duct (1.7 cm) . GI consulted, recommended MRCP, MRCP shows massive splenomegaly, perihepatic ascitic fluid with mesenteric edema, common bile duct is poorly characterized. Probable thrombus within the left portal vein. Abdomen MRI showed large heterogeneously enhancing mass of the hepatic dome and involving adjacent portions of the right hepatic lobe and, to a lesser extent the left hepatic lobe, splenomegaly with partial filling defect of left portal vein (suspected thrombus), and possible small filling defect in male portal vein. 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 due to positive blood culture, 2nd set of blood culture ordered, the results showed no bacterial growth. On 01/15/2025, the patient was feeling better since admission. Discharge plan discussed with the patient the patient discharged home. Next Discharge plan: Follow up with the PCP within 1 week of the discharge. Follow up with the discharge Clinic within 1 week of the discharge. Follow up with the GI on outpatient basis. Follow up with the Oncology on outpatient basis. Tablet doxycycline 100 mg twice daily for 2 weeks Continue home meds Operations or Procedures .[place] [id number] Ph: [phone] DIAGNOSTIC IMAGING Diagnostic Imaging Report : [id number] Signed PATIENT: RJ BERGERT: [id number] UNIT: [id number] : 1965 LOC: [place] ROOM / BED: [facility] / A AGE / SEX: 59 / F ADM STATUS: ADM IN SERVICE 2123 ORDERING PHYSICIAN: PAWAN BOND RESIDENT PROCEDURE(s): [facility] - ECHO 2D MODE CARDIAC DOP REASON: rule out cardiac structural cases ORDER NUMBER(s): [id number], ACCESSION NUMBER(s): [id number] APPROVED REPORT EXAM: Two-dimensional and M-mode echocardiogram with Doppler and color Doppler. Blood Pressure: 98/59 mmHg INDICATION Rule out cardiac structural cases RISK FACTORS Height: 5'1", DIMENSIONS LVDd 4.3 (3.8-5.7cm) LA (2D) 2.9 (1.9-4.0cm) Aortic Root 3.5 (2.0- 3.7cm) LVDs 2.7 (2.5-4.0cm) LA (MM) (1.9-4.0cm) Aortic Cusp Exc 1.6 (1.5- 2.0cm) EF (%) 60.0 (55-70%) Rt. Atrium (1.9-4.0cm) Asc. Aorta cm IVSd 0.9 (0.7-1.1cm) RV (D) (1.8-2.4cm) PWd 0.8 (0.7-1.1cm) Mitral Valve Mitral Mitral Stenosis E wave 0.67m/s MV Mean GR. mmHg A wave 0.74m/s MV Peak GR. mmHg E/A ratio 0.9 2D MVA cm2 DECEL Time 221ms PRESS 1/2 Time ms Aortic Valve Aortic Valve Aortic Stenosis V1 0.88m/s AO Mean GR. 4mmHg V2 1.38m/s AO Peak GR. 8mmHg LVOT Diameter 1.8 (1.8-2.4cm) Doppler WILLIAM 1.62cm2 Pulmonic Valve V2 1.15m/s Tricuspid Valve TR Velocity 2.48m/s RVSP 33mmHg Other Information Technically limited study due to body habitus. Conclusion lvef 65% normal RV function left atrium enlarged no severe valve abnormalities noted SIGNED BY: KRISTAN SPAIN MD SIGNED DATE/TIME: 01/12/25 1218 CC: Condition at Discharge: Good Final Diagnosis/Problems List Acute on chronic liver failure leading to ascites Intractable Abdominal pain likely due to ascites Ascites, likely due to liver failure Bacteremia, due to Streptococcus alpha hemolytic Transaminitis Moderate protein malnutrition ? Cholelithiasis ? Choledocholithiasis ? Spontaneous bacterial pneumonitis ? Splenomegaly ? 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 Follow up with the GI on outpatient basis. Follow up with the discharge Clinic within 1 week of the discharge. Medications: Tablet Augmentin 875 mg b.i.d. for 14 days. Continue home meds. Discharge Statement: "Patient was advised to return to the ER or call 911 if any headaches, dizziness, shortness of breath, chest pain, abdominal pain, bleeding, fevers, or worsening of medical condition. Patient was counseled about treatment plan, medications, possible side effects, patientverbalized understanding. All questions were answered to the best of my ability. This discharge took greater then 30 minutes in planning, reviewing documentation, counseling the patient, and discussing with other team members." ASSESSMENT ASSESSMENT Assessment Liver mass Bacteremia WILMER MOROCHO RESDIENT Jan 15, 2025 12:25
[2025-01-15 12:55] VITALS: BP 108/70; PULSE 89; RESP 16; TEMP 97.6; O2SAT 97
[2025-01-15] MEDS ORDERED: DOXY-286 PO (14:02)
--- NOTE | 2025-01-15 14:43 | DVHPN2 ---
Progress Note Date Seen: Jan 15, 2025 Resident Creating Document: SUSHILA WELCH RESIDENT Has the PT tested + for MRSA If YES, has PT been informed?: No Medical Necessity Reason Pt with a Central, PICC or Fol: No Subjective Review of Systems Patient is 59 years old female with no significant past medical history came with a complaint of general weakness, poor appetite and abdominal tightness or fullness. Lab workup revealed hemoglobin 11.2, hepatitis-C antibody positive. CT abdomen pelvis revealed- Moderate ascites around the liver and scattered throughout the abdomen and pelvis. Mild distention of the gallbladder no calcified gallstones seen. Ultrasound of the liver revealed-. Hepatomegaly and cirrhotic hepatic morphology. Ill-defined left hepatic lobe masslike structure poorly characterized on the current exam. Gallbladder sludge and borderline wall thickening. Negative sonographic river's sign. Dilated common bile duct. MRCP revealed-Extensive hepatic infiltrative masses/ lesions consistent with malignancy/ metastatic disease.This includes right hepatic lobe lesion measuring 13 x 12 cm, posterior right hepatic lobe lesion measuring 8 x 6 cm. There is also poorly defined /conglomerate lymphadenopathy/ mass in the region of the caudate lobe/anibal hepatis measuring 7 x 6.1 cm with individual lesions measuring 4.9 cm, 3.6 cm. These lesions all demonstrate diffusion restriction and are compatible with malignancy / metastatic disease.Perihepatic ascites fluid. Mesenteric edema. Massive splenomegaly. MRI of the abdomen revealed Large heterogeneously enhancing mass of the hepatic dome and involving adjacent portions of the right hepatic lobe and, to a lesser extent the left hepatic lobe. Heterogeneous mass involving the caudate lobe conglomeration of enlarged lymph nodes of the anibal hepatis, suspected metastatic lymph nodes. Filling defect in the left portal vein, suspected thrombus, which appears to be nonocclusive. Also suspected filling defects in the right portal vein possible small filling defects in the main portal vein. Splenomegaly. CT chest no thoracic metastasis AFP 80.6, CA 19.9246. Patient was seen today for clinical evaluation. No new complaint H&H stable Patient is status post liver biopsy on 01/13/2025 Objective vital signs Vital Sign Date Time Temp Pulse Resp B/P (MAP) Pulse Ox O2 Delivery O2 Flow Rate FiO2 01/15/25 12:55 97.6 89 16 108/70 (83) 97 97.6 01/15/25 08:11 Room Air* 0 21 Total Intake and Output 01/14/25 01/14/25 01/15/25 15:00 23:00 07:00 Intake Total 300 ml 900 ml 900 ml Output Total 450 ml Balance 300 ml 900 ml 450 ml medications Current Medications Medications Dose Ordered Sig/Ivis Route Start Time Stop Time Status Last Admin Dose Admin Ceftriaxone Sodium 50 ml @ 100 mls/hr DAILY@09 IV 01/11/25 09:00 01/15/25 10:23 100 MLS/HR Metronidazole 100 ml @ 100 mls/hr Q8HR IV 01/11/25 06:00 01/15/25 05:49 100 MLS/HR Pantoprazole Sodium 40 mg DAILY IV 01/11/25 10:00 01/15/25 10:23 40 MG Morphine Sulfate 1 mg Q6HP PRN IV 01/11/25 11:45 Vancomycin HCl 0 ml @ 0 mls/hr UD IV 01/12/25 20:00 Vancomycin HCl 150 ml @ 150 mls/hr Q12H IV 01/13/25 12:00 01/15/25 01:55 150 MLS/HR laboratory and microbiology Laboratory Tests 01/15/25 04:43 Test 01/15/25 04:43 Range/Units Serum Glucose 80 74-106 mg/dL Microbiology Date/Time Source Procedure Growth Status 01/14/25 08:30 Blood Blood Culture - Preliminary NO GROWTH AFTER 24 HOURS OF INCUBATION. Resulted Problem List/Assessment/Plan Problem List/Assessment/Plan Assessment and plan Suspected liver malignancy due to hepatic mass Cirrhosis of liver Transaminitis Ascites Generalized weakness Events No new complaint H&H stable Patient is status post liver biopsy on 01/13/2025 CT chest negative for metastasis Plan Patient was advised to follow up outpatient with Dr. 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 Beronica Stern , nursing staff, Total time spent on patient evaluation, chart review, assessment and plan, discussion discussion >35 minutes Plan discussed with: Patient (RN), Other Dietary Evaluation Review Comments: 1) Ensure Enlive if PO intake <50% 2) Continue current POC 3) Monitor PO intake, lab values, I/o, lab values Expected Outcomes/Goals: To meet >75% estimated needs Fu 3-5 days SUSHILA WELCH RESIDENT Jan 15, 2025 14:43
== END 2025-01-15 14:50 | disposition home or self-care (01) | DRG 281 ==
LOC: ER 18:36 → OVERFLOW 23:43 → TELE-WESTW 01-11 21:28 → WEST WING 01-12 05:59
PROVIDERS: ADMIT Student in an Organized Health Care Education/Training Program; ATTEND Emergency Medicine
PROC: 0FB13ZX Excision of Right Lobe Liver, Percutaneous Approach, Diagnostic (ICD-10-PCS; principal; 2025-01-13)
DX: C22.8 Malignant neoplasm of liver, primary, unspecified as to type (principal); I81 Portal vein thrombosis; C22.1 Intrahepatic bile duct carcinoma; E44.0 Moderate protein-calorie malnutrition; K72.10 Chronic hepatic failure without coma; E88.09 Other disorders of plasma-protein metabolism, not elsewhere classified; K80.50 Calculus of bile duct without cholangitis or cholecystitis without obstruction; K74.60 Unspecified cirrhosis of liver; R18.8 Other ascites; K83.8 Other specified diseases of biliary tract; R16.2 Hepatomegaly with splenomegaly, not elsewhere classified; D64.9 Anemia, unspecified; R13.10 Dysphagia, unspecified; J98.4 Other disorders of lung; K82.8 Other specified diseases of gallbladder; Z68.28 Body mass index [BMI] 28.0-28.9, adult; Z88.0 Allergy status to penicillin; R74.01 Elevation of levels of liver transaminase levels; B95.4 Other streptococcus as the cause of diseases classified elsewhere; E80.6 Other disorders of bilirubin metabolism
CPT/HCPCS: 36415; 47000; 71045; 71260; 74176; 74181; 76705; 76942; 80048; 80053; 80202; 80307; 80320; 81001; 82105; 82140; 82378; 82565; 82728; 83540; 83550; 83605; 83690; 84439; 84443; 84481; 84520; 85025; 85610; 86301; 86704; 86706; 86708; 86803; 86850; 86900; 86901; 87040; 87077; 87186; 87340; 92610; 93005; 93306; 97110; 97116; 97163; 97530; G0378; J2470; J3490

== ENCOUNTER 2025-03-26 18:50 | Inpatient (IN) | payer MEDICAID ==
[~2025-03-26] VITALS: Ht 160 cm; Wt 69.6 kg
[~2025-03-26 18:50] MED LIST: DOXY-286 PO
--- NOTE | 2025-03-26 19:08 | ED.PDOC ---
History of Present Illness HPI Comments 59-year-old female who came to ER via EMS for weakness. Patient has a history of liver cancer, gets abdominal paracentesis every Saturday, just had her chemotherapy last Saturday. Since then, she has been feeling generally weak, with the episodes of nausea vomiting and diarrhea. States she could not keep anything in. Patient also complaining chest discomfort or shortness a breath. Upon arrival paramedics patient's blood pressure was 100/66 mmHg Chief Complaint: General Weakness Time Seen by MD: 19:07 Reviewed Notes: Nurses Notes Allergies: Coded Allergies: Penicillins (Verified Allergy, Unknown, 01/11/25) Home Meds Active Scripts Doxycycline Hyclate (DOXYCYCLINE HYCLATE) 100 Mg Tab, 100 MG PO BID for 14 Days, #28 TAB Prov:WILMER MOROCHO RESDIENT 01/15/25 Information Source: Patient Mode of Arrival: EMS Severity: Moderate Timing: Hours Past Medical History PAST MEDICAL HISTORY: Cancer (Liver cancer) Past Medical History (Other): Ascites Surgical History: Denies all surgeries Surgical History (Other): Chemotherapy, abdominal paracentesis every Saturday 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 Family History Family History: Reviewed,noncontributory to illness Social History Smoker: Non-Smoker Alcohol: Denies ETOH Use Drugs: Denies Drug Use Lives In: Home Constitutional: reports: weakness; denies: chills, diaphoresis, fatigue, fever, malaise, sweats, others EENTM: denies: blurred vision, double vision, ear bleeding, ear discharge, ear drainage, ear pain, ear ringing, eye pain, eye redness, hearing loss, mouth pain, mouth swelling, nasal discharge, nose bleeding, nose congestion, nose pain, photophobia, tearing, throat pain, throat swelling, voice changes, others Respiratory: denies: cough, hemoptysis, orthopnea, SOB at rest, shortness of breath, SOB with excertion, stridor, wheezing, others Cardiovascular: denies: chest pain, dizzy spells, diaphoresis, Dyspnea on exertion, edema, irregular heart beat, left arm pain, lightheadedness, palpitations, PND, syncope, others Gastrointestinal: reports: diarrhea, nausea, vomiting; denies: abdomen distended, abdominal pain, blood streaked bowels, constipated, dysphagia, difficulty swallowing, hematemesis, melena, poor appetite, poor fluid intake, rectal bleeding, rectal pain, others Genitourinary: denies: abnormal vagina bleeding, burning, dyspareunia, dysuria, flank pain, frequency, hematuria, incontinence, pain, , vagina discharge, urgency, others Neurological: denies: dizziness, fainting, headache, left sided numbness, left sided weakness, numbness, paresthesia, pre-existing deficit, right sided numbness, right sided weakness, seizure, speech problems, tingling, tremors, weakness, others Musculoskeletal: denies: back pain, gout, joint pain, joint swelling, muscle pain, muscle stiffness, neck pain, others Integumetry: denies: bruises, change in color, change in hair/nails, dryness, laceration, lesions, lumps, rash, wounds, others Allergic/Immunocompromised: denies: Difficulty Healing, Frequent Infections, Hives, Itching, others Hematologic/Lymphatic: denies: anemia, blood clots, easy bleeding, easy bruising, swollen glands, others Endocrine: denies: excessive hunger, excessive sweating, excessive thirst, excessive urination, flushing, intolerance to cold, intolerance to heat, unexplained weight gain, unexplained weight loss, others Psychiatric: denies: anxiety, bipolar disorder, depression, hopeless, panic disorder, schizophrenia, sleepless, suicidal, others Physical Exam General Appearance: No Apparent Distress, Normal HEENT: Normal ENT Inspection, Pharynx Normal, TMs Normal Neck: Full Range of Motion, Non-Tender, Normal, Normal Inspection Respiratory: Chest Non-Tender, Lungs Clear, No Accessory Muscle Use, No Respiratory Distress, Normal Breath Sounds Cardiovascular: No Edema, No JVD, No Murmur, No Gallop, Normal Peripheral Pulses, Regular Rate/Rhythm Breast Exam: Deferred Gastrointestinal: No Organomegaly, Non Tender, No Pulsatile Mass, Normal Bowel Sounds, Soft Genitalia: Deferred Pelvic: Deferred Rectal: Deferred Extremities: No calf tenderness, Normal capillary refill, Normal inspection, Normal range of motion, Non-tender, No pedal edema Musculoskeletal : Apperance: Normal Neurologic: Alert, rn peritoneal dialysis II-XII nml as Tested, No Motor Deficits, Normal Affect, Normal Mood, No Sensory Deficits Cerebellar Function: Normal Reflexes: Normal Skin: Dry, Normal Color, Warm Lymphatic: No Adenopathy Was a procedure done? Was a procedure done?: No Differential Dx Considerations may include: Anemia, electrolyte imbalance, dehydration, gastroenteritis, liver cancer X-Ray, Labs, Meds, VS Vital Signs Date Time Temp Pulse Resp B/P (MAP) Pulse Ox O2 Delivery O2 Flow Rate FiO2 03/26/25 22:00 98.1 81 22 99/59 (72) 96 98.1 03/26/25 20:00 78 17 92/56 (68) 97 03/26/25 20:00 88 03/26/25 19:44 97 Room Air* 0 21 03/26/25 19:39 89 17 97 Room Air* 0 21 03/26/25 19:26 97.7 89 17 89/55 (66) 97 97.7 03/26/25 18:54 98.5 90 24 100/66 96 98.5 03/26/25 18:50 92 Lab Test 03/26/25 21:58 03/26/25 21:35 03/26/25 20:02 03/26/25 19:51 Range/Units Lactic Acid Level 1.8 2.5 *H 0.4-2.0 mmol/L Urine Color Pending Urine Clarity Pending Urine pH Pending Urine Specific [place] Pending Urine Protein Pending Urine Ketones Pending Urine Blood Pending Urine Nitrite Pending Urine Bilirubin Pending Urine Urobilinogen Pending Urine Leukocyte Esterase Pending Urine RBC Pending Urine Microscopic WBC Pending Urine Squamous Epithelial Cells Pending Urine Bacteria Pending Urine Glucose Pending Troponin I High Sensitivity < 3 L </=34 ng/L Test 03/26/25 19:11 Range/Units White Blood Count 6.2 4.4-10.8 10^3/uL Red Blood Count 3.58 L 4.0-5.20 10^6/uL Hemoglobin 11.4 L 12.2-16.2 g/dL Hematocrit 33.6 L 36.0-46.0 % Mean Corpuscular Volume 93.7 80.0-100.0 fL Mean Corpuscular Hemoglobin 31.9 28.0-32.0 pg Mean Corpuscular Hemoglobin Concent 34.0 32.0-36.0 g/dL Red Cell Distribution Width 15.7 H 11.8-14.3 % Platelet Count 145 140-450 10^3/uL Mean Platelet Volume 7.4 6.9-10.8 fL Neutrophils (%) (Auto) 69.1 37.0-80.0 % Lymphocytes (%) (Auto) 16.1 10.0-50.0 % Monocytes (%) (Auto) 13.5 H 0.0-12.0 % Eosinophils (%) (Auto) 0.7 0.0-7.0 % Basophils (%) (Auto) 0.6 0.0-2.0 % Neutrophils # (Auto) 4.3 1.6-8.6 10 ^3/uL Lymphocytes # (Auto) 1.0 0.4-5.4 10 ^3/uL Monocytes # (Auto) 0.8 0-1.3 10 ^3/uL Eosinophils # (Auto) 0 0-0.8 10 ^3/uL Basophils # (Auto) 0 0-0.2 10 ^3/uL Nucleated Red Blood Cells 0.1 % Prothrombin Time 13.1 H 9.3-11.8 sec Prothrombin Time INR 1.26 H 0.9-1.15 Activated Partial Thromboplast Time 33.1 24.5-34.5 SEC Sodium Level 133 L 136-145 mmol/L Potassium Level 4.0 3.5-5.1 mmol/L Chloride Level 103 98-107 mmol/L Carbon Dioxide Level 21 20-31 mmol/L Anion Gap 9 5-15 Blood Urea Nitrogen 12 9-23 mg/dL Creatinine 0.61 0.550-1.02 mg/dL Glomerular Filtration Rate Calc 102 >90 mL/min BUN/Creatinine Ratio 19.7 10.0-20.0 Serum Glucose 95 74-106 mg/dL Calcium Level 7.7 L 8.7-10.4 mg/dL Total Bilirubin 0.8 0.2-1.0 mg/dL Aspartate Amino Transferase (AST) 130 H 13-40 U/L Alanine Aminotransferase (ALT) 54 H 7-40 U/L Alkaline Phosphatase 603 H 46-116 U/L Ammonia 34 H 11-32 umol/L Troponin I High Sensitivity < 3 L </=34 ng/L Total Protein 6.6 5.7-8.2 g/dL Albumin 2.3 L 3.2-4.8 g/dL Current Medications Medications (Trade) Dose Ordered Sig/Ivis Route Start Time Stop Time Status Last Admin Sodium Chloride 1,000 ml @ 1,000 mls/hr Q1H ONCE IV 03/26/25 20:00 03/26/25 20:59 DC 03/26/25 19:59 Piperacillin Sod/ Tazobactam Sod 100 ml @ 100 mls/hr ONCE ONCE IV 03/26/25 20:00 03/26/25 20:59 DC 03/26/25 19:58 Albumin Human 50 ml @ 100 mls/hr ONCE ONCE IV 03/26/25 20:00 03/26/25 20:29 DC 03/26/25 20:02 Time of 1ST Reevaluation: 19:03 Reevaluation 1ST: Unchanged Patient Education/Counseling: Diagnosis, Treatment Family Education/Counseling: No Family Present SEPSIS Sepsis Screen Physician Orders Troponin-I Hs (03/27/25 00:00) Troponin-I Hs (03/27/25 03:00) Troponin-I Hs (03/27/25 06:00) Electrocardigram (03/26/25 18:53) Chest Xray 1 View (03/26/25 18:53) Urinalysis (03/26/25 18:53) Blood Culture (03/26/25 19:53) Sodium Chloride 0.9% (03/26/25 22:45) Vital Signs Date Time Temp Pulse Resp B/P (MAP) Pulse Ox O2 Delivery O2 Flow Rate FiO2 03/26/25 22:00 98.1 81 22 99/59 (72) 96 98.1 03/26/25 20:00 78 17 92/56 (68) 97 03/26/25 20:00 88 03/26/25 19:44 97 Room Air* 0 21 03/26/25 19:39 89 17 97 Room Air* 0 21 03/26/25 19:26 97.7 89 17 89/55 (66) 97 97.7 03/26/25 18:54 98.5 90 24 100/66 96 98.5 03/26/25 18:50 92 Laboratory Tests Test 03/26/25 19:11 03/26/25 20:02 03/26/25 21:58 White Blood Count 6.2 10^3/uL (4.4-10.8) Lactic Acid Level 2.5 mmol/L (0.4-2.0) *H 1.8 mmol/L (0.4-2.0) Medications Medications Dose Ordered Sig/Ivis Route Start Time Stop Time Status Last Admin Dose Admin Albumin Human 50 ml @ 100 mls/hr ONCE ONCE IV 03/26/25 20:00 03/26/25 20:29 DC 03/26/25 20:02 Piperacillin Sod/ Tazobactam Sod 100 ml @ 100 mls/hr ONCE ONCE IV 03/26/25 20:00 03/26/25 20:59 DC 03/26/25 19:58 Sodium Chloride 1,000 ml @ 1,000 mls/hr Q1H ONCE IV 03/26/25 20:00 03/26/25 20:59 DC 03/26/25 19:59 Departure 1 Departure Time of Disposition: 22:47 Impression: Primary Impression: Liver cancer Additional Impressions: UTI (urinary tract infection) Hypotension Disposition: ADMITTED INPATIENT Condition: Guarded Comments 59-year-old female with history of liver disease and per the history liver cancer that she had received chemotherapy for. Patient has now been feeling very weak in her blood pressure is low. I suspect the UTI. Possible sepsis. Patient was given IV fluid resuscitation and IV antibiotics. Patient will need admission for supportive care and further workup. Critical Care Note Critical Care Time?: No Stability Stability form required: No Heart Score Heart Score: Heart Score Response (Comments) Value History N/A 0 EKG N/A 0 Age N/A 0 Risk Factors N/A 0 Troponin N/A 0 Total 0 I personally scribed for KYLE WILLIAM MD ([email or web address]) on 03/26/25 at 19:08. Electronically submitted by Brain Palomares ([email or web address]). KYLE WILLIAM MD Mar 26, 2025 19:08
[2025-03-26 19:33] LABS: Hematocrit 33.6 % (36.0-46.0); Hemoglobin 11.4 g/dL (12.2-16.2); Mean Corpuscular Hemoglobin 31.9 pg (28.0-32.0); Mean Corpuscular Volume 93.7 fL (80.0-100.0); Nucleated Red Blood Cells % 0.1 %
[2025-03-26 19:39] VITALS: PULSE 89; RESP 17; O2SAT 97
[2025-03-26 19:43] LABS: Anion Gap 9 (5-15); BUN/Creatinine Ratio 19.7 (10.0-20.0); Bilirubin, Total 0.8 mg/dL (0.2-1.0); Blood Urea Nitrogen 12 mg/dL (9-23); Carbon Dioxide 21 mmol/L (20-31); Chloride 103 mmol/L (98-107); Glucose 95 mg/dL (74-106); Potassium 4.0 mmol/L (3.5-5.1); Total Protein 6.6 g/dL (5.7-8.2)
[2025-03-26 19:49] LABS: INR 1.26 (0.9-1.15); Partial Thromboplastin Time 33.1 SEC (24.5-34.5); Prothrombin Time 13.1 sec (9.3-11.8)
[2025-03-26 19:51] LABS: Alanine Aminotransferase 54 U/L (7-40); Albumin 2.3 g/dL (3.2-4.8); Alkaline Phosphatase 603 U/L (46-116); Calcium 7.7 mg/dL (8.7-10.4); Sodium 133 mmol/L (136-145)
[2025-03-26] MEDS: PIPERACILLIN-TAZOB 3.375GM 100 ML IV ONE (19:58)
[2025-03-26] MEDS: SODIUM CHLORIDE 0.9% 1,000 ML IV ONE ×2 (19:59→23:28)
[2025-03-26] MEDS: ALBUMIN 25% 50 ML IV ONE (20:02)
--- NOTE | 2025-03-26 20:55 | DVH ---
CHEST RADIOGRAPH REASON FOR EXAM: chest pain COMPARISON: CT CHEST WITH CONTRAST on DOS: 01/15/25, XY CHEST PORTABLE on DOS: 01/13/25 TECHNIQUE: One view of the chest is provided FINDINGS: The cardiomediastinal silhouette is within normal limits for size. There are low inspirator y volumes causing crowding and exaggeration of the pulmonary markings. There is right basilar airspac e disease. There is no large pleural effusion. No pneumothorax is identified. IMPRESSION: The inspiratory volumes. Right basilar airspace disease may represent atelectasis although pneumonia is not ruled out.
[2025-03-26 20:56] LABS: Lactic Acid w/Reflex 2.5 mmol/L (0.4-2.0)
--- NOTE | 2025-03-26 22:54 | ECG ---
[facility] Test Date: 2025-03-26 Test Time: 22:51:25 Pat Name: SIMONE MARTELL Department: Room: [address] [place] [address] Gender: F Retail Advertising Executive: NELLI : 1965 Requested By: KYLE WILLIAM Order Number: [id number] Reading MD: Luis Shipley Measurements Intervals [place] Rate: 87 P: 22 RI: 127 QRS: 73 QRSD: 92 T: -3 QT: 385 QTc: 463 Interpretive Statements Sinus rhythm Low voltage, precordial leads Consider anterolateral infarct Borderline T abnormalities, inferior leads Electronically Signed On 03-27-2025 16:45:40 PDT by Luis Shipley Please click the below link to view image of tracing.
[2025-03-26 23:23] LABS: Urine Budding Yeast OCCASIONAL /hpf (None Seen)
[2025-03-26 23:25] LABS: Urine Protein, UAD Trace (Negative)
[2025-03-26] MEDS: IOHEXOL 300 MG/ML 100ML BOTTLE IJ ONE (23:36)
--- NOTE | 2025-03-26 23:58 | DVHHP2 ---
History of Present Illness Reason for Visit: Generalized weakness History of Present Illness The patient is a 59-year-old female with past medical history of liver cancer, ascites, and hypotension who presented to [facility] ED with complaint of generalized weakness. Patient reports she gets abdominal paracentesis every Saturday, just had her chemotherapy last Saturday and since then she has been feeling generalized weakness, associated episode of nausea, vomiting, and diarrhea. Patient was seen and evaluated in the ED, laboratory data shows WBC 6.2, hemoglobin 11.4, hematocrit 33.6, platelets 145, sodium 133, potassium 4.0, BUN 12, creatinine 0.61, glucose 95, calcium 7.7, AST 130, ALT 54, total bilirubin 0.8, alkaline phos 603, blood pressure 99/56, heart rate 82, temperature 98.1 F, O2 saturation 97% room air. Chest x-ray revealing right bibasilar airspace disease may represent atelectasis although pneumonia is not ruled out. Please see medication orders section in the computer. On my assessment, patient denied chest pain, no headache, no dizziness, no d iaphoresis, no shortness of breath, no nausea, no vomiting, no fever, no chest. Patient was admitted for further and medical management. Past Medical History Cancer (Liver cancer), Ascites Past Surgical History Chemotherapy, abdominal paracentesis every Saturday Family History Reviewed, noncontributory to the management of this case. Past Social History The patient lives at home, denies smoking, alcohol or illicit drugs abuse. Review of Systems Constitutional: Yes: Weakness; No: Fever, Chills, Sweats, Malaise, Other Eyes: No: Pain, Vision change, Conjunctivae inflammation, Eyelid inflammation, Other, Redness ENT: No: Ear pain, Ear discharge, Nose pain, Nose discharge, Nose congestion, Mouth pain, Mouth swelling, Throat pain, Throat swelling, Other Respiratory: No: Cough, Dry, Shortness of breath, SOB with excertion, Wheezing, Hemoptysis, Pleuritic Pain, Sputum, Wheezing, Other Cardiovascular: No: Chest Pain, Palpitations, Orthopnea, Paroxysmal Noc. Dyspnea, Edema, Lt Headedness, Other Gastrointestinal: Nausea, Vomiting, Diarrhea; No: Abdominal Pain, Constipation, Melena, Hematochezia, Other Genitourinary: No Dysuria, No Frequency, No Incontinence, No Hematuria, No Retention, No Other Musculoskeletal: No: other, neck pain, shoulder pain, arm pain, back pain, hand pain, leg pain, foot pain Skin: No: Rash, Lesions, Jaundice, Bruising, Other Neurological: No: Weakness, Numbness, Incoordination, Change in speech, Confusion, Seizures, Other Allergies: Coded Allergies: Penicillins (Verified Allergy, Unknown, 01/11/25) Exam Vital Signs Vital Signs Date Time Temp Pulse Resp B/P (MAP) Pulse Ox O2 Delivery O2 Flow Rate FiO2 03/26/25 22:51 87 03/26/25 22:00 98.1 22 99/59 (72) 96 98.1 03/26/25 19:44 Room Air* 0 21 General Appearance: Alert, Oriented X3, Cooperative, No acute distress HEENT: Atraumatic, PERRLA, EOMI, Mucous membr. moist/pink Respiratory: Normal air movement Cardiovascular: Regular rate, Normal S1, Normal S2, No murmurs Abdominal: Normal bowel sounds, Soft, No tenderness, No masses, Other (Distended abdomen) Extremities: No clubbing, No cyanosis, No edema, Normal pulses, No tenderness/swelling Skin: No rashes, No significant lesion Neuro: Normal speech, Normal tone, Sensation intact, Cranial nerves 3-12 NL, Reflexes 2+, Other (Generalized weakness) Psych/Mental Status: Mental status NL, Mood NL Labs/Xrays Labs Test 03/26/25 21:58 03/26/25 21:35 03/26/25 19:51 03/26/25 19:11 Range/Units Lactic Acid Level 1.8 0.4-2.0 mmol/L Urine Color Yellow Yellow Urine Clarity Clear Clear Urine pH 6.0 5.0-9.0 Urine Specific [place] 1.005 1.001-1.035 Urine Protein Trace H Negative Urine Ketones Negative Negative Urine Blood Normal Negative /uL Urine Nitrite Negative Negative Urine Bilirubin Negative Negative Urine Urobilinogen Normal Negative mg/dL Urine Leukocyte Esterase Negative Negative /uL Urine RBC 1 0 - 4 /hpf Urine Microscopic WBC < 1 0-5 /HPF Urine Squamous Epithelial Cells Few <5 /hpf Urine Bacteria Few H None Seen /hpf Urine Yeast (Budding) Occasional None Seen /hpf Urine Glucose Normal Normal mg/dL Troponin I High Sensitivity < 3 L </=34 ng/L White Blood Count 6.2 4.4-10.8 10^3/uL Red Blood Count 3.58 L 4.0-5.20 10^6/uL Hemoglobin 11.4 L 12.2-16.2 g/dL Hematocrit 33.6 L 36.0-46.0 % Mean Corpuscular Volume 93.7 80.0-100.0 fL Mean Corpuscular Hemoglobin 31.9 28.0-32.0 pg Mean Corpuscular Hemoglobin Concent 34.0 32.0-36.0 g/dL Red Cell Distribution Width 15.7 H 11.8-14.3 % Platelet Count 145 140-450 10^3/uL Mean Platelet Volume 7.4 6.9-10.8 fL Neutrophils (%) (Auto) 69.1 37.0-80.0 % Lymphocytes (%) (Auto) 16.1 10.0-50.0 % Monocytes (%) (Auto) 13.5 H 0.0-12.0 % Eosinophils (%) (Auto) 0.7 0.0-7.0 % Basophils (%) (Auto) 0.6 0.0-2.0 % Neutrophils # (Auto) 4.3 1.6-8.6 10 ^3/uL Lymphocytes # (Auto) 1.0 0.4-5.4 10 ^3/uL Monocytes # (Auto) 0.8 0-1.3 10 ^3/uL Eosinophils # (Auto) 0 0-0.8 10 ^3/uL Basophils # (Auto) 0 0-0.2 10 ^3/uL Nucleated Red Blood Cells 0.1 % Prothrombin Time 13.1 H 9.3-11.8 sec Prothrombin Time INR 1.26 H 0.9-1.15 Activated Partial Thromboplast Time 33.1 24.5-34.5 SEC Sodium Level 133 L 136-145 mmol/L Potassium Level 4.0 3.5-5.1 mmol/L Chloride Level 103 98-107 mmol/L Carbon Dioxide Level 21 20-31 mmol/L Anion Gap 9 5-15 Blood Urea Nitrogen 12 9-23 mg/dL Creatinine 0.61 0.550-1.02 mg/dL Glomerular Filtration Rate Calc 102 >90 mL/min BUN/Creatinine Ratio 19.7 10.0-20.0 Serum Glucose 95 74-106 mg/dL Calcium Level 7.7 L 8.7-10.4 mg/dL Total Bilirubin 0.8 0.2-1.0 mg/dL Aspartate Amino Transferase (AST) 130 H 13-40 U/L Alanine Aminotransferase (ALT) 54 H 7-40 U/L Alkaline Phosphatase 603 H 46-116 U/L Ammonia 34 H 11-32 umol/L Total Protein 6.6 5.7-8.2 g/dL Albumin 2.3 L 3.2-4.8 g/dL PATIENT: SIMONE BERGERACCT: [id number] UNIT: [id number] : 1965 LOC: ER ROOM / BED: / AGE / SEX: 59 / F ADM STATUS: REG ER SERVICE 52 ORDERING PHYSICIAN: KYLE WILLIAM MD PROCEDURE(s): CXR1 - CHEST XRAY 1 VIEW REASON: chest pain ORDER NUMBER(s): [id number], ACCESSION NUMBER(s): [id number] CHEST RADIOGRAPH REASON FOR EXAM: chest pain COMPARISON: CT CHEST WITH CONTRAST on DOS: 01/15/25, XY CHEST PORTABLE on DOS: 01/13/25 TECHNIQUE: One view of the chest is provided FINDINGS: The cardiomediastinal silhouette is within normal limits for size. There are low inspiratory volumes causing crowding and exaggeration of the pulmonary markings. There is right basilar airspace disease. There is no large pleural effusion. No pneumothorax is identified. IMPRESSION: The inspiratory volumes. Right basilar airspace disease may represent atele ctasis although pneumonia is not ruled out. SEPSIS Sepsis Screen Date sepsis recognized/suspect: Mar 26, 2025 Time Sepsis recognized/suspect: 1942 Recent Procedure: No On Antibiotic Therapy: No Respiratory Rate >20: No Heart Rate >90: No Temp<36 C (96.8 F) or >38.3 C: No SBP <90 or MAP <65 mmHG: Yes New Acute Mental Status Change: No Is the patient on CPAP, BIPAP,: No Physician Orders Troponin-I Hs (03/27/25 00:00) Troponin-I Hs (03/27/25 03:00) Troponin-I Hs (03/27/25 06:00) Chest Xray 1 View (03/26/25 18:53) Blood Culture (03/26/25 19:53) Ct Ab Pel With Iv Con Only (03/26/25 22:51) Vital Signs Date Time Temp Pulse Resp B/P (MAP) Pulse Ox O2 Delivery O2 Flow Rate FiO2 03/26/25 22:51 87 03/26/25 22:00 98.1 81 22 99/59 (72) 96 98.1 03/26/25 20:00 78 17 92/56 (68) 97 03/26/25 20:00 88 03/26/25 19:44 97 Room Air* 0 21 03/26/25 19:39 89 17 97 Room Air* 0 21 03/26/25 19:26 97.7 89 17 89/55 (66) 97 97.7 03/26/25 18:54 98.5 90 24 100/66 96 98.5 03/26/25 18:50 92 Laboratory Tests Test 03/26/25 19:11 03/26/25 20:02 03/26/25 21:58 White Blood Count 6.2 10^3/uL (4.4-10.8) Lactic Acid Level 2.5 mmol/L (0.4-2.0) *H 1.8 mmol/L (0.4-2.0) Medications Medications Dose Ordered Sig/Ivis Route Start Time Stop Time Status Last Admin Dose Admin Albumin Human 50 ml @ 100 mls/hr ONCE ONCE IV 03/26/25 20:00 03/26/25 20:29 DC 03/26/25 20:02 100 MLS/HR Piperacillin Sod/ Tazobactam Sod 100 ml @ 100 mls/hr ONCE ONCE IV 03/26/25 20:00 03/26/25 20:59 DC 03/26/25 19:58 100 MLS/HR Sodium Chloride 1,000 ml @ 1,000 mls/hr Q1H ONCE IV 03/26/25 20:00 03/26/25 20:59 DC 03/26/25 19:59 1,000 MLS/HR Sodium Chloride 1,000 ml @ 1,000 mls/hr Q1H ONCE IV 03/26/25 22:45 03/26/25 23:44 DC 03/26/25 23:28 1,000 MLS/HR Assessment/Plan Assessment/Plan Liver cancer Hypocalcemia Hypotension Generalized weakness Elevated liver enzymes UTI (urinary tract infection) Plan 1. Admit to telemetry unit 2. Breathing treatment 3. Pain control management 4. Management of fluids and electrolytes 5. Consultation for hospitalist 6. Diagnostic tests chest x-ray 7. DVT prophylaxis-on SCDs 8. Repeat labs CBC, CMP in a.m. 9. Continue with current medical management 10. Treatment plan discussed with patient and RN. Patient verbalized understanding. Plan discussed with: Patient, Other (RN) Problem List: (1) Liver cancer (2) Hypocalcemia (3) Hypotension (4) Elevated liver enzymes (5) Generalized weakness (6) UTI (urinary tract infection) Date of Service: Mar 26, 2025 Billing Provider: JOSE HARRIS DNP Common Visit Codes: [id number] INP/OBS CARE (HIGH) JOSE HARRIS DNP Mar 26, 2025 23:58
[2025-03-27] VITALS (10 sets, daily range): BP systolic 88–101; BP diastolic 56–64; PULSE 71–95; RESP 16–20; TEMP 97.9–98.2; O2SAT 94–98
[2025-03-27] MEDS ORDERED: DOCUSATE SOD 100 MG CAP PO PRN
[2025-03-27] MEDS ORDERED: HYDROcodone-ACET 5/325MG TAB PO PRN
[2025-03-27] MEDS ORDERED: MORPHINE SULFATE INJ 2 MG/ml SYRG IV PRN
[2025-03-27] MEDS ORDERED: NITROGLYCERIN 0.4 MG SL TAB SL PRN
[2025-03-27] MEDS: CALCIUM GLUC 1,000mg/50ml-NS 50 ML IV ONE (00:17)
[2025-03-27] MEDS: ALBUMIN 25% 100 ML IV ONE (00:32)
[2025-03-27] MEDS: SODIUM CHLORIDE 0.9% 500 ML IV ONE ×2 (01:35→17:15)
--- NOTE | 2025-03-27 01:50 | DVH ---
CLINICAL HISTORY: abd pain TECHNIQUE: CT of the abdomen and pelvis was performed with intravenous contrast. 100 mL Omnipaque 300 injected This exam was performed according to our departmental dose optimization program. Up-to-date CT equipment and radiation dose reduction techniques are utilized as appropriate. 14.88 CTDIVol: 14.88 mGy DLP: 800.04 mGy-cm WID: COMPARISON: MRI ABDOMEN WITH CONTRAST on DOS: 01/12/25, report from CT CT AB PEL WO CON-NO ORAL OR IV on DOS: 01/10/25 FINDINGS: Lower Thorax: Linear bibasilar scarring and/or atelectasis. Ground-glass opacities in the bilateral l colleen bases which could reflect atelectasis. Normal-sized heart. Liver and Biliary system: There is mild hepatomegaly measuring 22 cm craniocaudal. Large heterogeneou s enhancing mass occupying segments 4A, 6, 7. There is enhancing tumor thrombus extending into the ma in, right, left portal veins. Gallbladder is normal caliber. No biliary ductal dilatation. There are enlarged enhancing periportal lymph nodes for example series 2, image 38. There is nodular contour of the liver. There are portosystemic collateral vessels in the abdomen. Spleen: Splenomegaly Adrenal Glands and Kidneys: Normal adrenal glands. There is no hydronephrosis or nephrolithiasis. Pancreas and Retroperitoneum: Unremarkable pancreas. A few mildly prominent though predominantly norm al-sized retroperitoneal lymph nodes are seen. Aorta and Major Vessels: Aortoiliac vessels are patent and normal caliber. There is enhancing tumor t hrombus extending into the portosystemic confluence, upper SMV and distal splenic vein. Bowel, Mesentery and Peritoneal space: Normal caliber small and large bowel. There is mild wall thick ening throughout the large bowel. There is [id number] ascites and mesenteric venous congestion. There is no free intraperitoneal air or loculated fluid collection. Pelvis: There is a fibroid in the anterior uterine body. Urinary bladder is mildly distended. There is no pelvic lymphadenopathy. Abdominal wall and Osseous Structures: Multilevel lower thoracic and lumbar spondylosis. Intraosseous hemangioma in the T9 vertebral body. IMPRESSION: 1. Large heterogeneous enhancing mass predominantly in the right lobe of the liver and also involving segment 4A, likely HCC. 2. Enhancing tumor thrombus extending into the main, right, and left portal veins as well as the port osystemic confluence, distal splenic vein and upper SMV. 3. Nodular contour of the liver likely cirrhosis. 4. Portal hypertension with mild splenomegaly, [id number] ascites and mesenteric venous congest ion, and portosystemic collateral vessels. 5. Circumferential bowel wall thickening which could be infectious or inflammatory colitis or related to underlying hepatic colopathy. 6. Enhancing enlarged periportal lymph nodes likely metastases.
[2025-03-27 04:41] LABS: Hematocrit 28.6 % (36.0-46.0); Hemoglobin 9.8 g/dL (12.2-16.2); Mean Corpuscular Hemoglobin 32.3 pg (28.0-32.0); Mean Corpuscular Volume 94.1 fL (80.0-100.0); Nucleated Red Blood Cells % 0.1 %
[2025-03-27 04:58] LABS: Anion Gap 9 (5-15); BUN/Creatinine Ratio 16.4 (10.0-20.0); Bilirubin, Total 1.0 mg/dL (0.2-1.0); Carbon Dioxide 21 mmol/L (20-31); Glucose 87 mg/dL (74-106); Sodium 137 mmol/L (136-145); Total Protein 6.0 g/dL (5.7-8.2)
[2025-03-27 05:01] LABS: Alanine Aminotransferase 42 U/L (7-40); Albumin 2.5 g/dL (3.2-4.8); Alkaline Phosphatase 487 U/L (46-116); Blood Urea Nitrogen 9 mg/dL (9-23); Calcium 7.5 mg/dL (8.7-10.4); Chloride 107 mmol/L (98-107); Potassium 3.4 mmol/L (3.5-5.1)
[2025-03-27] MEDS ORDERED: THIA100T10 PO (07:15)
[2025-03-27] MEDS ORDERED: OXY5T PO (07:15)
[2025-03-27] MEDS ORDERED: APIX2.5T PO (07:15)
[2025-03-27] MEDS ORDERED: BISA5TAB PO (07:15)
[2025-03-27] MEDS ORDERED: SENN-58 PO (07:15)
[2025-03-27] MEDS ORDERED: ZOFR4T PO (07:15)
[2025-03-27] MEDS ORDERED: FURO1TAB33 PO (07:15)
[2025-03-27] MEDS ORDERED: METO-281 PO (07:15)
[2025-03-27] MEDS: SODIUM CHLOR 0.9% PF (SALINE LOCK) 10ML VIAL/SYR IV SCH (07:34)
[2025-03-27] MEDS: FAMOTIDINE (10MG/ML) 2ML VL IV SCH (09:48)
[2025-03-27] MEDS: ONDANSETRON HCL 4 MG/2 ML VIAL IV PRN (11:30)
[2025-03-27] MEDS: DOXYCYCLINE 100MG/100ML 100 ML IV SCH (12:12)
--- NOTE | 2025-03-27 16:47 | DVHPN2 ---
Assessment/Plan Assessment/Plan Subjective History of Present Illness Urszula Yeh is a 59-year-old female with a history of liver cancer, currently undergoing chemotherapy, presenting with nausea, vomiting, and diarrhea. She receives regular paracentesis in a clinic and is on chemotherapy infusions every 2 months, though she is unable to specify the type of chemotherapy. The patient's current symptoms include nausea, vomiting, and diarrhea. She is taking medications at home for symptom management, including reglan, and zofan for nausea and vomiting, as well as oxycodone for pain control. Urszula has been taking Eliquis at home, which has been discontinued and replaced with therapeutic Lovenox during this visit. She continues to receive her regular chemotherapy treatments every two months. Objective Vital Signs - Temperature: Afebrile - Heart Rate: 75 bpm - Respiratory Rate: 18 breaths per minute - Blood Pressure: 100/63 mmHg - Oxygen Saturation: 98% on room air Physical Examination General: Temporal wasting noted. HEENT: Small mucous membrane observed. Respiratory: Clear breath sounds. Mild rhonchi on the bases. Abdomen: Ascites present. Abdomen nontender. Hepatomegaly observed. Musculoskeletal: Lower extremity edema, trace noted. Laboratory, Imaging, and Diagnostic Test Results - CBC: - Hemoglobin: 11 g/dL - Platelets: 104 - Coagulation: - INR: 1.26 - Chemistry: - Lactic acid: 2.5, trending down to 1.8 - Potassium: 3.4 mEq/L - AST: 109 U/L - ALT: 42 U/L - Alkaline phosphatase: 487 U/L - Chest X-ray: Right lower lobe opacity Assessment & Plan Assessment - Liver cancer - Ascites - Aspiration pneumonia - sepsis - Anemia - Hepatomegaly - Lower extremity edema - Nausea and vomiting - Diarrhea - Temporal wasting Plan - Continue empiric antibiotic coverage with ceftriaxone and doxycycline for suspected aspiration pneumonia - Switch from Eliquis to therapeutic Lovenox - Resume regular diet - Pending urine culture results - Maintain current pain management with oxycodone - Continue home medications for nausea and vomiting (staking, ray gland, enzofan) Diet: regular diet DVT PPX: therapeutic Lovenox GI PPX: Not indicated. Code Status: Full Code. Plan discussed with: Patient My Orders Orders - NORBERT BLANTON MD Procedure Category Date Status Time Ceftriaxone 1gm/50ml PHA 8/31/25 In Process D5w (Rocephin) 09:00 Doxycycline PHA 03/27/25 In Process 100mg/100ml 10:15 Enoxaparin Sodium PHA 03/27/25 In Process (Lovenox) 22:00 Basic Metabolic Panel LAB 03/28/25 Verified 04:00 Complete Blood Count LAB 03/28/25 Verified 04:00 Oxycodone Immediate PHA 03/27/25 Transmitted Rel Tablet 22:00 Ondansetron Po PHA 03/27/25 Transmitted (Zofran Po) 16:45 Date of Service: Mar 27, 2025 Billing Provider: NORBERT BLANTON MD Common Visit Codes: [id number] INP/OBS CARE(HIGH) NORBERT BLANTON MD Mar 27, 2025 16:47
[2025-03-27] MEDS: ENOXAPARIN SOD 100 MG/1 ML SYRINGE SC SCH (22:02)
[2025-03-28] VITALS (11 sets, daily range): BP systolic 94–145; BP diastolic 54–98; PULSE 75–110; RESP 18–21; TEMP 36.9; O2SAT 94–100
[2025-03-28 05:59] LABS: Hematocrit 34.2 % (36.0-46.0); Hemoglobin 11.5 g/dL (12.2-16.2); Mean Corpuscular Hemoglobin 31.9 pg (28.0-32.0); Mean Corpuscular Volume 94.9 fL (80.0-100.0); Nucleated Red Blood Cells % 0.1 %
[2025-03-28 06:08] LABS: Chloride 106 mmol/L (98-107); Potassium 3.9 mmol/L (3.5-5.1); Sodium 137 mmol/L (136-145)
[2025-03-28 06:09] LABS: Anion Gap 9 (5-15); Carbon Dioxide 22 mmol/L (20-31)
[2025-03-28 06:14] LABS: Glucose 84 mg/dL (74-106)
[2025-03-28 06:15] LABS: BUN/Creatinine Ratio 15.5 (10.0-20.0); Blood Urea Nitrogen 9 mg/dL (9-23)
[2025-03-28 06:37] LABS: Calcium 7.9 mg/dL (8.7-10.4)
[2025-03-28] MEDS: ONDANSETRON ODT 4 MG TAB PO PRN (13:23)
[2025-03-28] MEDS: diphenhdrAMINE HCL 50 MG/1 ML VL IV ONE (13:43)
--- NOTE | 2025-03-28 14:49 | DVHDS2 ---
Discharge Summary Date of Admission Mar 26, 2025 at 23:57 Date of Discharge: Mar 28, 2025 Labs/Diagnostic Data: Laboratory Results Test 03/28/25 05:19 03/27/25 04:21 03/26/25 21:58 03/26/25 21:35 White Blood Count 5.6 10^3/uL (4.4-10.8) Red Blood Count 3.60 10^6/uL (4.0-5.20) Hemoglobin 11.5 g/dL (12.2-16.2) Hematocrit 34.2 % (36.0-46.0) Mean Corpuscular Volume 94.9 fL (80.0-100.0) Mean Corpuscular Hemoglobin 31.9 pg (28.0-32.0) Mean Corpuscular Hemoglobin Concent 33.6 g/dL (32.0-36.0) Red Cell Distribution Width 16.8 % (11.8-14.3) Platelet Count 160 10^3/uL (140-450) Mean Platelet Volume 7.8 fL (6.9-10.8) Neutrophils (%) (Auto) 68.3 % (37.0-80.0) Lymphocytes (%) (Auto) 16.4 % (10.0-50.0) Monocytes (%) (Auto) 12.4 % (0.0-12.0) Eosinophils (%) (Auto) 1.7 % (0.0-7.0) Basophils (%) (Auto) 1.2 % (0.0-2.0) Neutrophils # (Auto) 3.8 10 ^3/uL (1.6-8.6) Lymphocytes # (Auto) 0.9 10 ^3/uL (0.4-5.4) Monocytes # (Auto) 0.7 10 ^3/uL (0-1.3) Eosinophils # (Auto) 0.1 10 ^3/uL (0-0.8) Basophils # (Auto) 0.1 10 ^3/uL (0-0.2) Nucleated Red Blood Cells 0.1 % Sodium Level 137 mmol/L (136-145) Potassium Level 3.9 mmol/L (3.5-5.1) Chloride Level 106 mmol/L (98-107) Carbon Dioxide Level 22 mmol/L (20-31) Anion Gap 9 (5-15) Blood Urea Nitrogen 9 mg/dL (9-23) Creatinine 0.58 mg/dL (0.550-1.02) Glomerular Filtration Rate Calc 104 mL/min (>90) BUN/Creatinine Ratio 15.5 (10.0-20.0) Serum Glucose 84 mg/dL (74-106) Calcium Level 7.9 mg/dL (8.7-10.4) Total Bilirubin 1.0 mg/dL (0.2-1.0) Aspartate Amino Transferase (AST) 109 U/L (13-40) Alanine Aminotransferase (ALT) 42 U/L (7-40) Alkaline Phosphatase 487 U/L (46-116) Total Protein 6.0 g/dL (5.7-8.2) Albumin 2.5 g/dL (3.2-4.8) Lactic Acid Level 1.8 mmol/L (0.4-2.0) Urine Color Yellow (Yellow) Urine Clarity Clear (Clear) Urine pH 6.0 (5.0-9.0) Urine Specific [place] 1.005 (1.001-1.035) Urine Protein Trace (Negative) Urine Ketones Negative (Negative) Urine Blood Normal /uL (Negative) Urine Nitrite Negative (Negative) Urine Bilirubin Negative (Negative) Urine Urobilinogen Normal mg/dL (Negative) Urine Leukocyte Esterase Negative /uL (Negative) Urine RBC 1 /hpf (0 - 4) Urine Microscopic WBC < 1 /HPF (0-5) Urine Squamous Epithelial Cells Few /hpf (<5) Urine Bacteria Few /hpf (None Seen) Urine Yeast (Budding) Occasional /hpf (None Urine Glucose Normal mg/dL (Normal) Test 03/26/25 19:51 03/26/25 19:11 Troponin I High Sensitivity < 3 ng/L (</=34) Prothrombin Time 13.1 sec (9.3-11.8) Prothrombin Time INR 1.26 (0.9-1.15) Activated Partial Thromboplast Time 33.1 SEC (24.5-34.5) Ammonia 34 umol/L (11-32) Other Laboratory Tests 03/28/25 05:19 Brief Hx & Hospital Course: Urszula Yeh, a 5-year-old female with liver cancer undergoing chemotherapy, presented with nausea, vomiting, and diarrhea. Physical examination revealed temporal wasting, ascites, hepatomegaly, and trace lower extremity edema. Labs showed mild anemia, thrombocytopenia, and elevated liver enzymes. She was diagnosed with aspiration pneumonia and started on ceftriaxone and doxycycline. Eliquis was switched to therapeutic Lovenox. Home medications for symptom management were continued, including oxycodone for pain control. condition improving, however patient seem to have reaction corwin ceft. will switch to cipro for DC> stable. Condition at Discharge: Good Final Diagnosis/Problems List - Liver cancer - Ascites - Aspiration pneumonia - Anemia - Hepatomegaly - Lower extremity edema - Nausea and vomiting - Diarrhea - Temporal wasting Discharge Disposition: Home Discharge Instruct/Medications Scheduled Apixaban Base (Eliquis), 2.5 MG PO BID, (Reported) Bisacodyl (Ex-Lax Ultra), 5 MG PO BID, (Reported) Furosemide (Lasix), 1 TAB PO DAILY, (Reported) Oxycodone Hcl (Oxycodone Hcl), 5 MG PO BID, (Reported) Miscellaneous Medications Metoclopramide Hcl (Reglan), 10 MG PO, (Reported) Ondansetron Odt 4MG Tab (Zofran Po), 4 MG PO, (Reported) Senna (Senokot), 8.6 MG PO, (Reported) Thiamine Hcl (Vitamin B-1), 100 MG PO, (Reported) Discharge Statement: "Patient was advised to return to the ER or call 911 if any headaches, dizziness, shortness of breath, chest pain, abdominal pain, bleeding, fevers, or worsening of medical condition. Patient was counseled about treatment plan, medications, possible side effects, patientverbalized understanding. All questions were answered to the best of my ability. This discharge took greater then 30 minutes in planning, reviewing documentation, counseling the patient, and discussing with other team members." ASSESSMENT ASSESSMENT Assessment Date of Service: Mar 28, 2025 Billing Provider: NORBERT BLANTON MD Common Visit Codes: [id number]/OBS DISCH DAY >30min NORBERT BLANTON MD Mar 28, 2025 14:49
[2025-03-28] MEDS ORDERED: LEVO500T91 PO (14:50)
[2025-03-28] MEDS: ENOXAPARIN SOD 60 MG/0.6 ML SYRINGE SC SCH (21:20)
[2025-03-29 05:00] VITALS: BP 102/76; PULSE 82; RESP 19; TEMP 98; O2SAT 98
[2025-03-29] MEDS: levoFLOXacin 500 MG TAB PO SCH (06:25)
[2025-03-29 07:55] VITALS: PULSE 87; RESP 16; O2SAT 98
[2025-03-29 08:03] VITALS: PULSE 88
[2025-03-29 08:32] VITALS: BP 91/60; PULSE 87; RESP 16; TEMP 97.7; O2SAT 98
--- NOTE | 2025-03-29 12:49 | DVHPN2 ---
Subjective The patient is seen and examined at bedside. No fever today. Reviewed: Care Plan, H&P, Labs, Medications, Previous Orders, Radiology Changes from previous H/P or p: No Changes Eyes: No Pain, No Vision change, No Conjunctivae inflammation, No Eyelid inflammation, No Other, No Redness ENT: No Ear pain, No Ear discharge, No Nose pain, No Nose discharge, No Nose congestion, No Mouth pain, No Mouth swelling, No Throat pain, No Throat swelling, No Other Cardiovascular: No Chest Pain, No Palpitations, No Orthopnea, No Paroxysmal Noc. Dyspnea, No Edema, No Lt Headedness, No Other Respiratory: No Cough, No Dry, No Shortness of breath, No SOB with excertion, No Wheezing, No Hemoptysis, No Pleuritic Pain, No Sputum, No Other Gastrointestinal: Nausea, Vomiting; No Abdominal Pain; Diarrhea; No Constipation, No Melena, No Hematochezia, No Other Genitourinary: No Dysuria, No Frequency, No Incontinence, No Hematuria, No Retention, No Other Musculoskeletal: No other, No neck pain, No shoulder pain, No arm pain, No back pain, No hand pain, No leg pain, No foot pain Skin: No Rash, No Lesions, No Jaundice, No Bruising, No Other Objective Vitals Vital Signs Date Time Temp Pulse Resp B/P (MAP) Pulse Ox O2 Delivery O2 Flow Rate FiO2 03/29/25 08:32 97.7 87 16 91/60 (70) 98 97.7 03/29/25 07:55 Room Air* 0 21 Intake/Output Intake and Output 03/29/25 07:00 Intake Total 2040 ml Balance 2040 ml Intake Oral 1890 ml IV Total 150 ml # Voids 8 # Bowel Movements 3 General Appearance: Alert, Oriented X3, Cooperative, No acute distress HEENT: Atraumatic, PERRLA, EOMI, Mucous membr. moist/pink Neck: Supple Cardiovascular: Regular rate, Normal S1, Normal S2, No murmurs, Gallops, Rubs Abdomen: Normal bowel sounds, Soft, No tenderness Neuro: Cranial nerves 3-12 NL Psych/Mental Status: Mental status NL Medications Current Medications Medications Dose Ordered Sig/Ivis Route Start Time Stop Time Status Last Admin Dose Admin Sodium Chloride 10 ml Q8HR IV 03/27/25 06:00 03/29/25 06:23 10 ML Famotidine 20 mg DAILY IV 03/27/25 10:00 03/29/25 09:04 20 MG Doxycycline Hyclate 100 ml @ 50 mls/hr Q12H IV 03/27/25 10:15 03/29/25 09:05 50 MLS/HR Oxycodone HCl 5 mg BID PO 03/27/25 22:00 03/28/25 22:13 5 MG Ondansetron HCl 4 mg Q6HP PRN PO 03/27/25 16:45 03/29/25 06:24 4 MG Enoxaparin Sodium 60 mg Q12HR SC 03/28/25 22:00 03/29/25 09:04 60 MG Levofloxacin 500 mg DAILY PO 03/29/25 07:00 03/29/25 09:04 500 MG Laboratory Results Laboratory Tests 03/28/25 05:19 Urinalysis Test 03/26/25 21:35 Urine Color Yellow (Yellow) Urine Clarity Clear (Clear) Urine pH 6.0 (5.0-9.0) Urine Specific [place] 1.005 (1.001-1.035) Urine Protein Trace (Negative) H Urine Ketones Negative (Negative) Urine Blood Normal /uL (Negative) Urine Nitrite Negative (Negative) Urine Bilirubin Negative (Negative) Urine Urobilinogen Normal mg/dL (Negative) Urine Leukocyte Esterase Negative /uL (Negative) Urine RBC 1 /hpf (0 - 4) Urine Microscopic WBC < 1 /HPF (0-5) Urine Squamous Epithelial Cells Few /hpf (<5) Urine Bacteria Few /hpf (None Seen) H Urine Yeast (Budding) Occasional /hpf (None Urine Glucose Normal mg/dL (Normal) Microbiology Microbiology Date/Time Source Procedure Growth Status 03/26/25 20:02 Blood Blood Culture - Preliminary NO GROWTH AFTER 48 HOURS OF INCUBATION. Resulted Assessment/Plan Assessment/Plan - Liver cancer - Ascites - Aspiration pneumonia - sepsis - Anemia - Hepatomegaly - Lower extremity edema - Nausea and vomiting - Diarrhea - Temporal wasting Plan - Continue empiric antibiotic coverage with ceftriaxone and doxycycline for suspected aspiration pneumonia - Switch from Eliquis to therapeutic Lovenox - Resume regular diet - Pending urine culture results - Maintain current pain management with oxycodone - Continue home medications for nausea and vomiting (staking, ray gland, enzofan) Discharge was held yesterday because the patient has fever of 100.3. No fever within 24 hours. I am discharge her today. Plan discussed with: Patient Date of Service: Mar 29, 2025 Billing Provider: AUTUMN CACERES MD Common Visit Codes: [id number] INP/OBS CARE(HIGH) AUTUMN CACERES MD Mar 29, 2025 12:49
== END 2025-03-29 13:00 | disposition home or self-care (01) | DRG 720 ==
LOC: EDBD 18:50 → ER 18:50 → OVERFLOW 23:57 → TELE-WESTW 03-27 23:51
PROVIDERS: ADMIT Nurse Practitioner Family; ATTEND Nurse Practitioner Family
DX: A41.9 Sepsis, unspecified organism (principal); J69.0 Pneumonitis due to inhalation of food and vomit; E43 Unspecified severe protein-calorie malnutrition; D69.6 Thrombocytopenia, unspecified; J18.9 Pneumonia, unspecified organism; C22.9 Malignant neoplasm of liver, not specified as primary or secondary; R18.8 Other ascites; E83.51 Hypocalcemia; I95.9 Hypotension, unspecified; R16.0 Hepatomegaly, not elsewhere classified; D64.9 Anemia, unspecified; N39.0 Urinary tract infection, site not specified; Z88.0 Allergy status to penicillin; Z79.899 Other long term (current) drug therapy
CPT/HCPCS: 36415; 71045; 74177; 80048; 80053; 81001; 82140; 83605; 84484; 85025; 85610; 85730; 87040; 93005; 96365; G0378; J2405; J2543; J3490; P9047; Q0162